=== PATIENT | male | born 1940 | race Two or more races ===

== ENCOUNTER 2020-08-17 16:38 | Inpatient (IN) | payer MEDICARE, OTHER ==
[~2020-08-17] VITALS: Ht 182.9 cm; Wt 82.6 kg
--- NOTE | 2020-08-17 17:00 | NUR ---
cher MCKEON from sn[facility]. per ems report, pt was found in the floor. possible syncopal episode. pt is verbally responsive. 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 roomed, gowned and placed on monitor. awaiting md delaney.
--- NOTE | 2020-08-17 17:22 | NUR ---
syncope - [facility] to ER Accu check - 216 mm/dl
--- NOTE | 2020-08-17 17:30 | NUR ---
dr carr at bedside for eval.
--- NOTE | 2020-08-17 17:45 | NUR ---
unable to start piv. multiple tries. edema to bue noted. ermd aware.
[2020-08-17] MEDS ORDERED: ASCO-352 PO (17:58)
[2020-08-17] MEDS ORDERED: FOLI0.8T2 PO (17:58)
[2020-08-17] MEDS ORDERED: DOCU-141 PO (17:58)
[2020-08-17] MEDS ORDERED: SPIR50TA PO (17:58)
[2020-08-17] MEDS ORDERED: MAGN400O6 PO (17:58)
[2020-08-17] MEDS ORDERED: MULT-447 PO (17:58)
[2020-08-17] MEDS ORDERED: POLY17PO4 PO (17:58)
[2020-08-17] MEDS ORDERED: AMIO200T5 PO (17:58)
[2020-08-17] MEDS ORDERED: METO5TAB7 PO (17:58)
[2020-08-17] MEDS ORDERED: ACET-2605 PO (17:58)
[2020-08-17] MEDS ORDERED: ASPI-1169 PO (17:58)
[2020-08-17] MEDS ORDERED: NA P133E RC (17:58)
[2020-08-17] MEDS ORDERED: LEVO112T2 PO (17:58)
[2020-08-17] MEDS ORDERED: FOLI0.4T2 PO (17:58)
[2020-08-17] MEDS ORDERED: AMIN30LI2 PO (17:58)
[2020-08-17] MEDS ORDERED: APIX2.5T PO (17:58)
[2020-08-17] MEDS ORDERED: GABA-532 PO (17:58)
[2020-08-17] MEDS ORDERED: HYDR28.316 RC (17:58)
[2020-08-17] MEDS ORDERED: FURO-144 PO (17:58)
[2020-08-17] MEDS ORDERED: SENN-261 PO (17:58)
[2020-08-17] MEDS ORDERED: LACT10SO3 PO (17:58)
[2020-08-17] MEDS ORDERED: CALC667C6 PO (17:58)
[2020-08-17] MEDS ORDERED: ATOR40TA PO (17:58)
[2020-08-17] MEDS ORDERED: AMLO-213 PO (17:58)
[2020-08-17] MEDS ORDERED: PANT40TA2 PO (17:58)
[2020-08-17] MEDS ORDERED: VITA1TAB56 PO (17:58)
[2020-08-17] MEDS ORDERED: ZINC57OI4 TP (17:58)
[2020-08-17] MEDS ORDERED: FINA5TAB11 PO (17:58)
[2020-08-17] MEDS ORDERED: CARV25TA2 PO (17:58)
[2020-08-17] MEDS ORDERED: ACET-868 PO (17:58)
[2020-08-17] MEDS ORDERED: SEVE800T8 PO (17:58)
[2020-08-17] MEDS ORDERED: BISA10SU11 RC (17:58)
[2020-08-17] MEDS ORDERED: METO-295 PO (17:58)
--- NOTE | 2020-08-17 19:20 | NUR ---
report given to carol royal for stefan.
[2020-08-17] MEDS ORDERED: MAGNESIUM HYDROXIDE 30 ML UDC PO PRN (19:30)
[2020-08-17] MEDS ORDERED: HYDROCORTISONE CR 30 GM TUBE RC PRN (19:30)
[2020-08-17] MEDS ORDERED: ACETAMINOPHEN 325 MG TABLET PO PRN (19:30)
[2020-08-17] MEDS ORDERED: NA PHOS,M-B/NA PHOS,DI-BA 1 EA ENEMA RC PRN (19:30)
[2020-08-17] MEDS ORDERED: POLYETHYLENE GLYCOL 3350 17 GM POWD.PACK PO PRN (19:30)
[2020-08-17] MEDS ORDERED: ACETAMINOPHEN ES 500 MG TABLET PO PRN (20:00)
--- NOTE | 2020-08-17 20:09 | NUR ---
covid swab sent
--- NOTE | 2020-08-17 21:14 | NUR ---
R UPPER ARM MIDLINE INSERTED BY PICC LINE NURSE (MERCEDES)
--- NOTE | 2020-08-17 21:15 | NUR ---
blood collected from midline, sent to lab. called to run stat
[2020-08-17 21:22] LABS: BASOPHILS # (AUTO) 0.1 /CMM (0.0-0.2); BASOPHILS % (AUTO) 0.8 % (0.0-2.0); HEMATOCRIT 33 % (39-51); HEMOGLOBIN 10.8 g/dL (13.5-17.5); LYMPHOCYTES % (AUTO) 12.5 % (20.0-44.0); MEAN CORPUSCULAR HGB CONC 32 g/dl (31.0-36.0); MEAN CORPUSCULAR VOLUME 98 fL (80-96); MONOCYTES # (AUTO) 0.8 /CMM (0.1-1.30); MONOCYTES % (AUTO) 9.8 % (2.0-12.0); NEUTROPHILS # (AUTO) 6.2 /CMM (1.8-8.9); NEUTROPHILS % (AUTO) 75.9 % (43.0-81.0); PLATELET COUNT (AUTO) 130 /CMM (150-450); RED BLOOD CELL COUNT(AUTO) 3.39 MIL/uL (4.5-6.0); WHITE BLOOD COUNT (AUTO) 8.2 K/uL (4.3-11.0)
[2020-08-17 21:32] LABS: CALCIUM, SERUM 8.5 mg/dL (8.5-10.1); CARBON DIOXIDE 34 mmol/L (21-32); CHLORIDE 101 mmol/L (98-107); CREATININE 3.5 mg/dL (0.6-1.3); GLUCOSE 93 mg/dL (74-106); POTASSIUM 4.4 mmol/L (3.5-5.1); SODIUM SERUM 141 mmol/L (136-145); UREA NITROGEN, BLOOD 30 mg/dL (7-18)
[2020-08-17 21:38] LABS: ALANINE AMINOTRANSFERASE 16 U/L (12-78); ALBUMIN 2.2 g/dL (3.4-5.0); ALKALINE PHOSPHATASE 163 U/L (46-116); ASPARTATE AMINOTRANSFERASE 32 U/L (15-37); BILIRUBIN,DIRECT 0.5 mg/dL (0.0-0.2)
[2020-08-17] MEDS: SENNOSIDES 8.6 MG TABLET PO SCH (22:00)
--- NOTE | 2020-08-18 05:43 | NUR ---
BED ASSIGNMENT 118
[2020-08-18] MEDS: ATORVASTATIN 40 MG TABLET PO SCH ×2 (05:44→21:17)
[2020-08-18] MEDS ORDERED: ATORVASTATIN 40 MG TABLET ONE (05:44)
--- NOTE | 2020-08-18 07:11 | NUR ---
REPORT GIVEN LESLYE RN FOR MICHELLE PT WILL BE TRANSPORTED TO 1ST FLOOR
[2020-08-18 08:00] VITALS: BP 131/81
--- NOTE | 2020-08-18 08:00 | NUR ---
Patient received from ED in good stable condition via gurney. Patient admitted to tele floor, No c/o pain or discomfort. On 02 sat 4 liters via n/c with 02 saturation of 97%+. Patient provided breakfast and full body assessment done with findings listed. Patient on tele box with a FIB hr OF 80'S. Patient teaching done regarding safety and fall precautions. Will continue to monitor. Call light with in reach. Bed is in lowest and locked position.
[2020-08-18] MEDS: PANTOPRAZOLE 40 MG TABLET.DR PO SCH (08:22)
[2020-08-18] MEDS: ASCORBIC ACID 500 MG TABLET PO SCH (08:23)
[2020-08-18] MEDS: DOCUSATE SODIUM 100 MG CAPSULE PO SCH ×2 (08:23→17:16)
[2020-08-18] MEDS: CALCIUM ACETATE 667 MG TABLET PO SCH (08:23)
[2020-08-18] MEDS: METOCLOPRAMIDE HCL 10 MG TABLET PO SCH (08:23)
[2020-08-18] MEDS: GABAPENTIN 100 MG CAPSULE PO SCH ×3 (08:23→17:16)
[2020-08-18] MEDS: SEVELAMER CARBONATE 800 MG TABLET PO SCH ×3 (08:23→17:16)
[2020-08-18] MEDS: ASPIRIN 81 MG TAB.CHEW PO SCH (08:24)
[2020-08-18] MEDS: CARVEDILOL 12.5 MG TABLET PO SCH ×2 (08:24→16:03)
[2020-08-18] MEDS: APIXABAN 2.5 MG TABLET PO SCH ×2 (08:25→17:27)
[2020-08-18] MEDS: PROSOURCE / PROSTAT (PYXIS) 30 ML UDC PO SCH (08:49)
[2020-08-18] MEDS ORDERED: AMLODIPINE BESYLATE 10 MG TABLET PO SCH (09:00)
[2020-08-18] MEDS ORDERED: AMIODARONE HCL 200 MG TABLET PO SCH (09:00)
--- NOTE | 2020-08-18 09:00 | NUR ---
Patient requested to be resuscitated in case of emergency.
[2020-08-18 10:23] LABS: BASOPHILS % (AUTO) 0.3 % (0.0-2.0); EOSINOPHILS % (AUTO) 0.2 % (0.0-6.0); HEMATOCRIT 31 % (39-51); LYMPHOCYTES # (AUTO) 0.8 /CMM (0.8-4.8); LYMPHOCYTES % (AUTO) 9.2 % (20.0-44.0); MEAN CORPUSCULAR HGB CONC 32 g/dl (31.0-36.0); MEAN CORPUSCULAR VOLUME 99 fL (80-96); MONOCYTES # (AUTO) 0.6 /CMM (0.1-1.30); MONOCYTES % (AUTO) 7.6 % (2.0-12.0); NEUTROPHILS # (AUTO) 6.7 /CMM (1.8-8.9); NEUTROPHILS % (AUTO) 82.7 % (43.0-81.0); RED BLOOD CELL COUNT(AUTO) 3.17 MIL/uL (4.5-6.0); WHITE BLOOD COUNT (AUTO) 8.1 K/uL (4.3-11.0)
[2020-08-18 10:50] LABS: CALCIUM, SERUM 8.6 mg/dL (8.5-10.1); CARBON DIOXIDE 32 mmol/L (21-32); CHLORIDE 104 mmol/L (98-107); CREATININE 4.1 mg/dL (0.6-1.3); GLUCOSE 127 mg/dL (74-106); POTASSIUM 4.1 mmol/L (3.5-5.1); SODIUM SERUM 140 mmol/L (136-145); UREA NITROGEN, BLOOD 34 mg/dL (7-18)
[2020-08-18 11:07] LABS: ALANINE AMINOTRANSFERASE 12 U/L (12-78); ALBUMIN 1.8 g/dL (3.4-5.0); ALKALINE PHOSPHATASE 112 U/L (46-116); ASPARTATE AMINOTRANSFERASE 28 U/L (15-37); BILIRUBIN,TOTAL 0.8 mg/dL (0.2-1.0); MAGNESIUM 2.2 mg/dL (1.8-2.4); PHOSPHORUS 4.4 mg/dL (2.5-4.9); TOTAL PROTEIN, SERUM 5.8 g/dL (6.4-8.2)
[2020-08-18 12:00] VITALS: BP 93/67
[2020-08-18] MEDS: LEVOTHYROXINE SODIUM 112 MCG TABLET PO SCH (12:22)
[2020-08-18 13:25] LABS: PLATELET COUNT (AUTO) 80 /CMM (150-450)
--- NOTE | 2020-08-18 15:32 | NUR ---
Spoke to AUTOMOBILE RENTAL AGENT Yosvany Riley regarding patient's Bp being 83/50 and rechecked with bp of 85/58. No c/o dizziness. No c/o blurred vision. Informed md regarding patient's eliquis and platelet count today. Per Md to give eliquis and nno for BP. Patient will be monitored. Call light with in reach.
[2020-08-18 16:00] VITALS: BP 84/61
[2020-08-18] MEDS: FINASTERIDE (5 MG) 5 MG TABLET PO SCH (17:16)
--- NOTE | 2020-08-18 18:46 | NUR ---
television maintenance man closing notes Patient is alert and oriented. No s/s respiratory distress. No c/o sob. Perma cath noted to right upper chest. Patient ate 100% breakfast, 100 % lunch and 50% dinner. Picc line to right upper arm noted to be patent.Tele box reading of afib in 80's. On 02 4 liters with saturation of 98%. Head of the bed kept elevated. Bed is in lowest and locked and position. Call light with in reach.Will endorse to next shift for MICHELLE
--- NOTE | 2020-08-18 19:15 | NUR ---
RN OPENING NOTE RECEIVED PATIENT IN BED RESTING ALERT ORIENTED X2 VERBALLY RESPONSIVE on 2l OXYGEN VIA NASAL CANNULA,O2;98% ON DIALYSIS IV SITE IS ON RIGHT UPPER ARM MIDLINE INTACT PATENT,PERM CATH ON RIGHT UPPER CHEST,DRESSING INTACT PATIENT IS CONTINENT TO BOWEL/BLADDER BED ALARM IS ON,BED IN LOW POSITION AND LOCKED CALL LIGHT WITHIN REACH,SAFETY MEASURE IMPLEMENT CONTINUE TO MONITOR.
[2020-08-18 20:00] VITALS: BP 115/61
[2020-08-18] MEDS: SENNOSIDES 8.6 MG TABLET PO SCH (21:17)
[2020-08-19] VITALS: BP 92/62
[2020-08-19 04:00] VITALS: BP 96/47
[2020-08-19 06:54] LABS: BASOPHILS % (AUTO) 0.5 % (0.0-2.0); EOSINOPHILS % (AUTO) 1.9 % (0.0-6.0); HEMATOCRIT 27 % (39-51); HEMOGLOBIN 8.9 g/dL (13.5-17.5); LYMPHOCYTES # (AUTO) 0.7 /CMM (0.8-4.8); LYMPHOCYTES % (AUTO) 15.6 % (20.0-44.0); MEAN CORPUSCULAR HGB CONC 33 g/dl (31.0-36.0); MEAN CORPUSCULAR VOLUME 97 fL (80-96); MONOCYTES # (AUTO) 0.5 /CMM (0.1-1.30); MONOCYTES % (AUTO) 11.3 % (2.0-12.0); NEUTROPHILS # (AUTO) 3.2 /CMM (1.8-8.9); NEUTROPHILS % (AUTO) 70.7 % (43.0-81.0); PLATELET COUNT (AUTO) 72 /CMM (150-450); RED BLOOD CELL COUNT(AUTO) 2.78 MIL/uL (4.5-6.0); WHITE BLOOD COUNT (AUTO) 4.5 K/uL (4.3-11.0)
[2020-08-19 07:31] LABS: ALANINE AMINOTRANSFERASE 12 U/L (12-78); ALBUMIN 1.6 g/dL (3.4-5.0); ALKALINE PHOSPHATASE 104 U/L (46-116); ASPARTATE AMINOTRANSFERASE 27 U/L (15-37); BILIRUBIN,TOTAL 0.5 mg/dL (0.2-1.0); CALCIUM, SERUM 8.1 mg/dL (8.5-10.1); CARBON DIOXIDE 33 mmol/L (21-32); CHLORIDE 104 mmol/L (98-107); CREATININE 4.3 mg/dL (0.6-1.3); GLUCOSE 79 mg/dL (74-106); MAGNESIUM 2.1 mg/dL (1.8-2.4); POTASSIUM 4.4 mmol/L (3.5-5.1); SODIUM SERUM 139 mmol/L (136-145); TOTAL PROTEIN, SERUM 5.4 g/dL (6.4-8.2); UREA NITROGEN, BLOOD 40 mg/dL (7-18)
--- NOTE | 2020-08-19 07:35 | NUR ---
RN CLOSING NOTE PATIENT REMAINS IN BED RESTING ALERT ORIENTED X2 VERBALLY RESPONSIVE on 2l OXYGEN VIA NASAL CANNULA,O2;98% ON DIALYSIS IV SITE IS ON RIGHT UPPER ARM MIDLINE INTACT PATENT,PERM CATH ON RIGHT UPPER CHEST,DRESSING INTACT,ALL DUE MEDS GIVEN, MD ORDERED KEPT CLEAN AND DRY ALL THE TIME,ALL NEEDS MET,ENDORSE NEXT COMING SHIFT FOR CONTINUATION OF CARE.
--- NOTE | 2020-08-19 07:36 | NUR ---
ms rn received on bed, awake,alert,oriented x4,not in any form of distress, respirations even and unlabored,no sob noted, denies pain at this time,all needs attended.
[2020-08-19 08:00] VITALS: BP 103/62
[2020-08-19] MEDS: AMIODARONE HCL 200 MG TABLET PO SCH (09:00)
[2020-08-19] MEDS: PROSOURCE / PROSTAT (PYXIS) 30 ML UDC PO SCH (09:00)
--- NOTE | 2020-08-19 09:00 | NUR ---
ms royal breakfast served,due meds given,tolerated well.
[2020-08-19] MEDS: DOCUSATE SODIUM 100 MG CAPSULE PO SCH ×2 (09:06→18:08)
[2020-08-19] MEDS: ASCORBIC ACID 500 MG TABLET PO SCH (09:06)
[2020-08-19] MEDS: CALCIUM ACETATE 667 MG TABLET PO SCH (09:06)
[2020-08-19] MEDS: METOCLOPRAMIDE HCL 10 MG TABLET PO SCH (09:06)
[2020-08-19] MEDS: GABAPENTIN 100 MG CAPSULE PO SCH ×3 (09:06→18:07)
[2020-08-19] MEDS: ASPIRIN 81 MG TAB.CHEW PO SCH (09:06)
[2020-08-19] MEDS: APIXABAN 2.5 MG TABLET PO SCH (09:07)
[2020-08-19] MEDS: SEVELAMER CARBONATE 800 MG TABLET PO SCH ×3 (09:09→18:07)
[2020-08-19] MEDS: LEVOTHYROXINE SODIUM 112 MCG TABLET PO SCH (09:09)
[2020-08-19] MEDS: PANTOPRAZOLE 40 MG TABLET.DR PO SCH (09:09)
--- NOTE | 2020-08-19 09:26 | NUR ---
WOUND CARE CONSULT: REVIEWED CHART, NURSING DOCUMENTATION AND PHOTOS WHICH INDICATE MULTIPLE WOUNDS PRESENT ON ADMISSION INCLUDING LOWER EXTREMITIES, SACRUM, SKIN TEARS TO ARMS WITH FRAGILE SKIN AND DISCOLORATIONS. RECOMMEND SURGICAL AND DPM CONSULTS. DR MONAHAN AND DR RAY NOTIFIED OF CONSULT REQUESTS. FIRST STEP LOW AIRLOSS MATTRESS IS ORDERED. RECOMMENDATIONS MADE FOR SKIN PROTECTION. DISCUSSED WITH NURSING STAFF. MD IN AGREEMENT WITH PLAN OF CARE.
[2020-08-19] MEDS ORDERED: Z GUARD REMEDY 2 OZ OINT TP PRN (09:30)
[2020-08-19] MEDS: Z GUARD REMEDY 2 OZ OINT TP SCH (09:42)
[2020-08-19 09:54] LABS: EOSINOPHILS % (MANUAL) 1 % (0-4); LYMPHOCYTES % (MANUAL) 16 % (16-48); MONOCYTES % (MANUAL) 9 % (0-11.0); NEUTROPHILS % (MANUAL) 74 (42-76)
[2020-08-19 09:56] LABS: THYROID STIMULATING HORMONE 15.734 uIU/mL (0.358-3.74)
[2020-08-19 12:00] VITALS: BP 102/69
[2020-08-19 16:00] VITALS: BP 94/55
[2020-08-19] MEDS ORDERED: HEPARIN INFUSION/D5W 500 ML IV PRN (17:00)
--- NOTE | 2020-08-19 17:30 | NUR ---
ms rn patient started on hd, tolerated well.
[2020-08-19] MEDS: FINASTERIDE (5 MG) 5 MG TABLET PO SCH (18:07)
--- NOTE | 2020-08-19 19:00 | NUR ---
ms rn patient on hd, heparin will be started after hd.
--- NOTE | 2020-08-19 19:20 | NUR ---
RECEIVED PT ON BED AWAKE ON O2 4L VIA NC SPO2 96% NO SIGN OF DISTRESS AND PAIN PT IS ONGOING HD, HD NURSE AT BEDSIDE, TELE MONITOR READS CONTROLLED AFIB 80'S , HAVE MANUEL MIDLINE PATENT AND FLUSHED, DROPLET ISOLATION FOR COVID MAINTAINED BED ON LOWEST POSITION AND LOCKED SIDE RAILS UP X2 CALL LIGHT WITHIN REACH WILL CONT TO MONITOR
[2020-08-19 20:00] VITALS: BP 109/73
--- NOTE | 2020-08-19 20:15 | NUR ---
PT COMPLETED HD WITH LATEST V/S 101/62 HR 82 TEMP 98 SPO2 98% RR 20 PT IS AWAKE A/O X4 ABLE TO VERBALIZED NEEDS HD OUTPUT 1600 ML WILL CONT TO MONITOR THE PT
[2020-08-19] MEDS: SENNOSIDES 8.6 MG TABLET PO SCH (22:00)
[2020-08-20] VITALS: BP 114/67
[2020-08-20 04:00] VITALS: BP 106/60
[2020-08-20 04:49] LABS: BASOPHILS % (AUTO) 0.8 % (0.0-2.0); EOSINOPHILS % (AUTO) 2.4 % (0.0-6.0); HEMATOCRIT 26 % (39-51); HEMOGLOBIN 8.7 g/dL (13.5-17.5); LYMPHOCYTES # (AUTO) 0.9 /CMM (0.8-4.8); LYMPHOCYTES % (AUTO) 16.6 % (20.0-44.0); MEAN CORPUSCULAR HGB CONC 33 g/dl (31.0-36.0); MEAN CORPUSCULAR VOLUME 97 fL (80-96); MONOCYTES # (AUTO) 0.6 /CMM (0.1-1.30); MONOCYTES % (AUTO) 10.8 % (2.0-12.0); NEUTROPHILS % (AUTO) 69.4 % (43.0-81.0); PLATELET COUNT (AUTO) 132 /CMM (150-450); RED BLOOD CELL COUNT(AUTO) 2.71 MIL/uL (4.5-6.0); WHITE BLOOD COUNT (AUTO) 5.7 K/uL (4.3-11.0)
[2020-08-20 05:03] LABS: CALCIUM, SERUM 7.8 mg/dL (8.5-10.1); CARBON DIOXIDE 34 mmol/L (21-32); CHLORIDE 100 mmol/L (98-107); CREATININE 3.6 mg/dL (0.6-1.3); GLUCOSE 75 mg/dL (74-106); POTASSIUM 4.3 mmol/L (3.5-5.1); SODIUM SERUM 136 mmol/L (136-145); UREA NITROGEN, BLOOD 32 mg/dL (7-18)
--- NOTE | 2020-08-20 05:30 | NUR ---
REPORTED TO DR MCWILLIAMS ABOUT THE APTT OF 170 WITH ORDER TO HOLD HEPARIN DRIP FOR 2 HOURS AND REPEAT PT/INR APTT, AND RESUME THE DRIP PER PROTOCOL BASE ON THE REPEAT PT/ APTT RESULT NOTED AND CARRIED OUT
--- NOTE | 2020-08-20 06:16 | NUR ---
REPORTED TO DR. MCWILLIAMS ABOUT THE LEG PAIN COMPLAINT OF THE PT WITH ORDER FOR NORCO 5-325 PO PRN Q6H NOTED AND CARRIED OUT
[2020-08-20] MEDS: HYDROCODONE/APAP 5/325MG TABLET PO PRN ×2 (06:29→21:23)
--- NOTE | 2020-08-20 06:40 | NUR ---
PT ON BED AWAKE A/O X3 CAN VERBALIZED NEEDS ON 4L O2 VIA NC SPO2 98% TELE MONITOR READS AFIB CONTROLLED 90'S NO SIGNIFICANT CHANGES ON CONDITION NOTED ALL NEEDS ATTENDED WOUND TREATMENT WAS DONE, BED ON LOWEST POSITION AND LOCKED SIDE RAILS UP X2 CALL LIGHT WITHIN REACH WILL ENDORSED TO AM SHIFT NURSE
[2020-08-20 08:00] VITALS: BP 117/71
--- NOTE | 2020-08-20 08:00 | NUR ---
CONTROLLED ATMOSPHERIC FURNACE BRAZER NOTE PT ON BED AWAKE A/O X3 CAN VERBALIZED NEEDS ON 4L O2 VIA NC SPO2 100 % TELE MONITOR READS AFIB CONTROLLED 85% ALL NEEDS ATTENDED , BED ON LOWEST POSITION AND LOCKED SIDE RAILS UP X2 CALL LIGHT WITHIN REACH, RT UPPER ARM NID LINE IN PLACE AND FLUSHED WELL HEPARIN DRIP SOPPED AT THIS TIME PER REPORT CUSTOMER SOLUTIONS ARCHITECT RN , HAVING BREAKFAST ABLE TO EAT WELL
[2020-08-20] MEDS: ASCORBIC ACID 500 MG TABLET PO SCH (09:00)
[2020-08-20] MEDS: PROSOURCE / PROSTAT (PYXIS) 30 ML UDC PO SCH (09:00)
--- NOTE | 2020-08-20 09:00 | NUR ---
SHEET ROLLER OPERATOR NOTE CALLED TO DR LINDA BACKSHOE PERSON NOTIFIED THAT PTT 39.6, PER HOSPITAL PROTOCOL NEED TO GIVE BOLUS 3400 UNITS AND INCREASE DRIP BY 2 UNITS WICH 150 UNITS\H PER DR LINDA NO BOLUS BUT OK WITH ADJUSTMENT WILL DO PTT IN 6 HOUR
[2020-08-20] MEDS: CALCIUM ACETATE 667 MG TABLET PO SCH (09:03)
[2020-08-20] MEDS: LEVOTHYROXINE SODIUM 112 MCG TABLET PO SCH (09:03)
[2020-08-20] MEDS: GABAPENTIN 100 MG CAPSULE PO SCH ×3 (09:03→16:42)
[2020-08-20] MEDS: DOCUSATE SODIUM 100 MG CAPSULE PO SCH ×2 (09:03→16:42)
[2020-08-20] MEDS: PANTOPRAZOLE 40 MG TABLET.DR PO SCH (09:04)
[2020-08-20] MEDS: METOCLOPRAMIDE HCL 10 MG TABLET PO SCH (09:04)
[2020-08-20] MEDS: ASPIRIN 81 MG TAB.CHEW PO SCH (09:04)
[2020-08-20] MEDS: AMIODARONE HCL 200 MG TABLET PO SCH (09:10)
[2020-08-20] MEDS: Z GUARD REMEDY 2 OZ OINT TP SCH (09:25)
[2020-08-20] MEDS: SEVELAMER CARBONATE 800 MG TABLET PO SCH ×3 (09:25→17:38)
[2020-08-20] MEDS: THERAHONEY GEL 1.5 OZ TUBE TP SCH (09:26)
--- NOTE | 2020-08-20 11:24 | NUR ---
telephone information supervisor note spoke with dr mcarthur notified that earlier ptt was 170 and heparin drip was held for 2 hour ordered now ok to start heparin drip at 1550 units, and also c\o yue [facility] called to dr hamlet lebron to order Doppler study
[2020-08-20] MEDS ORDERED: HEPARIN INFUSION/D5W 500 ML IV PRN ×2 (11:30→18:30)
[2020-08-20 12:00] VITALS: BP 105/58
--- NOTE | 2020-08-20 13:47 | NUR ---
television maintenance worker note pt at bedside pt eval done Addendum: 08/20/20 at 1355 by TABITHA PARKER RN called to central supply to bring kci noa stated that will order
--- NOTE | 2020-08-20 14:30 | NUR ---
MEDICAL STAFF SERVICES MANAGER NOTE ON HD AT THIS TIME
--- NOTE | 2020-08-20 14:30 | NUR ---
telemarketing supervisor note us Dopplex done on lt leg as ordered
--- NOTE | 2020-08-20 14:55 | NUR ---
BUTTONHOLE MARKER NOTE PER RADIOLOGY LT FEMORAL THROMBUS , CALLED TO DR KNOX NOTIFIED THAT PATIENT ALREADY ON HEPARIN DRIP NO NEW ORDER AT THIS TIME ,WILL MONITOR, ON HD FOR NOW
[2020-08-20 16:00] VITALS: BP 93/68
--- NOTE | 2020-08-20 16:37 | NUR ---
ASSOCIATE PROFESSOR OF ARCHAEOLOGY NOTE HD COMPLETED. REMOVE 1.1 L OF FLUIDS BP 124/68 HR101
[2020-08-20] MEDS: FINASTERIDE (5 MG) 5 MG TABLET PO SCH (16:42)
--- NOTE | 2020-08-20 17:55 | NUR ---
SOCIOCULTURAL ANTHROPOLOGY PROFESSOR NOTE CALLED TO LAB ABOUT PTT RESULT NOT READY ,WILL F\U
--- NOTE | 2020-08-20 18:10 | NUR ---
GLOBAL VP CREATIVE + CONTENT MARKETING NOTE PTT 71.6 ,PER HOSPITAL PROTOCOL OK TO DECREASE BY 2 UNITS \KG\H=150 UNITS\HOUR WHICH MADE 1400 UNITS \KG\HOUR , CALLED PHARMACY STATED OK TO CONT THIS RATE ALSO PER DR LINDA OK TO FOLLOW HOSPITAL PROTOCOL AND PER LISETTE CHRISTENSEN OK TO CONT HEPARIN DRIP FOR LT FEMORAL VEIN THROMBOSIS
--- NOTE | 2020-08-20 18:43 | NUR ---
CONSUMER RECRUITER NOTE RESTING COMFORTABLY AT THIS TIME, ABLE TO EAT DINNER SELF , ALL NEEDS ATTENDED , CONT ON HEPARIN DRIP ORDERED, BED IN LOWEST AND LOCKED POSITION, CALLED [facility] NO [facility] AVAILABLE YET AT THIS TIME, BED IN LOWEST AND LOCKED POSITION,ON 4L NC, NO SOB NOTED , WILL CONT TO MONITOR
--- NOTE | 2020-08-20 19:30 | NUR ---
RN OPENING NOTES: RECEIVED PT A/OX3 IN BED RESTING COMFORTABLY. PATIENT IN NO S/SX OF ACUTE DISTRESS AT THIS TIME. NO SOB NOTED. PATIENT'S BREATHING IS EVEN AND UNLABORED. PATIENT IS ON 4 L OF OXYGEN VIA NC; TOLERATING WELL. PATIENT ON TELE MONITORING READING SINUS RHYTHM HR IS @80s AT THE TIME OF RECEIVED.PATIENT ON RENAL SPECIFIC DIET; TOLERATES WELL. NOTED IV SITE ON R UA MIDLINE #18 ; PATENT, INTACT AND FLUSHING WELL; NO S/S OF INFECTION OR INFILTRATION. PT ALSO HAS A R PER CATH; SECURED AND INTACT. SAFETY MEASURES HAVE BEEN PROVIDED AND IMPLEMENTED. PATIENT BED ALARM IS ON. HEAD OF BED ELEVATED. BED IS LOCKED, IN LOWEST POSITION AND SIDE RAILS UP. CALL LIGHT WITHIN REACH OF THE PATIENT. APPLICABLE ISOLATION PRECAUTIONS IN PLACE. WILL CONTINUE TO MONITOR AND REASSESS FOR ANY CHANGES AND WILL CARRY OUT ANY ONGOING AND ACTIVE MD ORDER.
[2020-08-20 20:00] VITALS: BP 122/68
--- NOTE | 2020-08-20 20:30 | NUR ---
RN NOTES SACHINI SILVERIO APPLIED; IMPORTER EXPORTER MADE AWARE.
[2020-08-20] MEDS: SENNOSIDES 8.6 MG TABLET PO SCH (21:15)
--- NOTE | 2020-08-20 23:00 | NUR ---
RN NOTES PATIENT REMAINS IN NO ACUTE RESPIRATORY DISTRESS AT THIS TIME, NO CHANGES TO CONDITION/STATUS. MALTED MILK SUPERVISOR WELL AWARE. WILL CONTINUE TO MONITOR AND REASSESS FOR ANY CHANGES THROUGHOUT THE SHIFT
--- NOTE | 2020-08-21 00:05 | NUR ---
RN NOTES PATIENT REFUSED FOR VITAL SIGNS TO BE TAKEN FOR 0000, RN DISCUSSED RISKS AND BENEFITS; PT STILL REFUSED; HE SAID HE IS GOOD TO HAVE HIS VITALS SIGNS TAKEN IN THE MORNING. RN ACKNOWLEDGED. MOTOR BUILDER ASSEMBLER MADE AWARE. WILL CONTINUE TO MONITOR AND ASSESS THROUGHOUT THE SHIFT.
--- NOTE | 2020-08-21 01:55 | NUR ---
RN NOTES RECEIVED CALL FROM LAB, SPOKE WITH ROSELYN, CRITICAL LAB RECEIVED FOR APTT 163.9. RN ACKNOWLEDGED. PRODUCT DEVELOPMENT SCIENTIST MADE AWARE. WILL INFORM SILVIA GRAHAM AND WILL SECURE ANY ORDERS NEEDED.
--- NOTE | 2020-08-21 01:56 | NUR ---
RN NOTES COMMUNICATED WITH SILVIA GRAHAM AND ADVISED ABOUT CRITICAL LAB RESULT FOR APTT 163.9.AWAITING FOR RESPONSE, WILL CARRY OUT ORDER ONCE RECEIVED. ERIKA KAUR MADE AWARE. Addendum: 08/21/20 at 0217 by DORIAN DOWNEY RN @0215 RECEIVED ORDER FROM SILVIA GRAHAM TO HOLD INFUSION FOR 2HRS AND REPEAT APTT THEN FOLLOW PROTOCOL. ERIKA KAUR MADE AWARE.
--- NOTE | 2020-08-21 02:15 | NUR ---
RN NOTES HEPARIN DRIP PUT ON HOLD PER ORDERED BY SILVIA GRAHAM. REPEAT APTT WILL BE DONE @0415. AND WILL FOLLOW PROTOCOL PER ORDERED. HEALTH EDUCATOR MADE AWARE.
[2020-08-21 04:00] VITALS: BP 138/70
--- NOTE | 2020-08-21 04:10 | NUR ---
RN NOTES AT 0405 APPT RESULT CAME OUT 50.5, NO CHANGES TO HEPARIN INFUSION DOSE RATE PER PROTOCOL; CURRENT DOSE RATE IS @ 1400UNITS/HR; 28MLS/HR. SEMICONDUCTOR EQUIPMENT TECHNICIAN MADE AWARE. WILL CONTINUE TO MONITOR AND ASSESS THROUGHOUT THE SHIFT.
[2020-08-21 04:19] LABS: BASOPHILS # (AUTO) 0.1 /CMM (0.0-0.2); BASOPHILS % (AUTO) 0.9 % (0.0-2.0); HEMATOCRIT 26 % (39-51); HEMOGLOBIN 8.6 g/dL (13.5-17.5); LYMPHOCYTES # (AUTO) 1.1 /CMM (0.8-4.8); LYMPHOCYTES % (AUTO) 17.7 % (20.0-44.0); MEAN CORPUSCULAR HGB CONC 33 g/dl (31.0-36.0); MEAN CORPUSCULAR VOLUME 97 fL (80-96); MONOCYTES # (AUTO) 0.8 /CMM (0.1-1.30); MONOCYTES % (AUTO) 13.6 % (2.0-12.0); NEUTROPHILS % (AUTO) 65.8 % (43.0-81.0); PLATELET COUNT (AUTO) 80 /CMM (150-450)
[2020-08-21 04:22] LABS: CALCIUM, SERUM 7.6 mg/dL (8.5-10.1); CARBON DIOXIDE 34 mmol/L (21-32); CHLORIDE 99 mmol/L (98-107); CREATININE 3.4 mg/dL (0.6-1.3); GLUCOSE 83 mg/dL (74-106); POTASSIUM 4.2 mmol/L (3.5-5.1); SODIUM SERUM 134 mmol/L (136-145); UREA NITROGEN, BLOOD 29 mg/dL (7-18)
--- NOTE | 2020-08-21 06:51 | NUR ---
RN CLOSING NOTE: PATIENT REMAINS IN ROOM IN NO SIGNS OF RESPIRATORY DISTRESS, PATIENT STILL ON 4L VIA NC;TOLERATING WELL SATURATING @ >95% SP02. SAFETY MEASURES IMPLEMENTED, BED IN LOWEST POSITION, LOCKED, SIDE RAILS UP, CALL LIGHT WITHIN REACH. ALL NEEDS AND ORDERS ADDRESSED DURING THE SHIFT. IV ACCESS MAINTAINED INTACT, SECURED AND FLUSHING WELL. ALL DUE MEDS GIVEN ORDERED & SCHEDULED ; PATIENT TOLERATED WELL. PATIENT KEPT CLEAN AND COMFORTABLE WITHIN THE SHIFT. PATIENT ENDORSED TO INCOMING SHIFT RN WITH STABLE VITAL SIGN AND FOR CONTINUITY OF CARE.
[2020-08-21] MEDS: LEVOTHYROXINE SODIUM 112 MCG TABLET PO SCH (07:30)
--- NOTE | 2020-08-21 07:30 | NUR ---
FIELD CROP GROWER OPENING NOTE PT LAYING IN BED COMFORTABLY, A/Ox4, ON NC 4 LPM, NO SIGNS OF RESP DISTRESS OR SOB, BREATING EVEN AND UNLABORED, PT DENIES PAIN. PT IS BB AND HAS BILAT UPPER AND LOWER EXTREMITY EDEMA AND BRUISING. WEEPING SKIN COVERED IN ABD DRSG AND KERLIX. SACRAL DTI COVERED IN MEPILEX. PT MANUEL MIDLINE #18 INFUSING HEPARIN DRIP @ 1400 UNITS/HR; 28 MLS/HR PER PROTOCOL. ALL PT SAFETY MEASURES IN PLACE. WILL CONT TO MONITOR
[2020-08-21 08:00] VITALS: BP 127/78
[2020-08-21 08:07] LABS: IMMUNOGLOBULIN A, SERUM 440 mg/dL (61-437); IMMUNOGLOBULIN G, SERUM 1967 mg/dL (603-1613); IMMUNOGLOBULIN M, SERUM 99 mg/dL (15-143)
[2020-08-21] MEDS: ASPIRIN 81 MG TAB.CHEW PO SCH (08:45)
[2020-08-21] MEDS: Z GUARD REMEDY 2 OZ OINT TP SCH (08:45)
[2020-08-21] MEDS: PANTOPRAZOLE 40 MG TABLET.DR PO SCH (08:46)
[2020-08-21] MEDS: ASCORBIC ACID 500 MG TABLET PO SCH (08:46)
[2020-08-21] MEDS: GABAPENTIN 100 MG CAPSULE PO SCH ×3 (08:46→16:44)
[2020-08-21] MEDS: DOCUSATE SODIUM 100 MG CAPSULE PO SCH ×3 (08:46→16:49)
[2020-08-21] MEDS: METOCLOPRAMIDE HCL 10 MG TABLET PO SCH (08:47)
[2020-08-21] MEDS: SEVELAMER CARBONATE 800 MG TABLET PO SCH ×3 (08:47→18:00)
[2020-08-21] MEDS: AMIODARONE HCL 200 MG TABLET PO SCH (08:48)
[2020-08-21] MEDS: THERAHONEY GEL 1.5 OZ TUBE TP SCH (09:10)
[2020-08-21] MEDS: PROSOURCE / PROSTAT (PYXIS) 30 ML UDC PO SCH (09:10)
[2020-08-21] MEDS: CALCIUM ACETATE 667 MG TABLET PO SCH (09:10)
--- NOTE | 2020-08-21 10:00 | NUR ---
tele telephone answerer: notes received pt in bed awake, a/ox3 with hob elevated. remains on o2 at 4l/min via n/c. no distress noted. tele sr=70's. no c/o pain at this time. will continue to monitor.
[2020-08-21 12:00] VITALS: BP 115/72
--- NOTE | 2020-08-21 12:11 | NUR ---
[place] PER DR. ALONSO. STOP HEPARIN DRIP
--- NOTE | 2020-08-21 12:25 | NUR ---
tele barkeeper: notes heparin drip stopped and discontinued per cn. pt made aware. dr. cuevas to call pharmacy and pt to start on eliquis. will continue to monitor.
[2020-08-21 12:55] LABS: *SPE A/G RATIO 0.6 (0.7-1.7); *SPE ALPHA-1-GLOBULIN 0.3 g/dL (0.0-0.4); *SPE ALPHA-2-GLOBULIN 0.4 g/dL (0.4-1.0); *SPE BETA GLOBULIN 1.1 g/dL (0.7-1.3); *SPE GLOBULIN, TOTAL 3.5 g/dL (2.2-3.9); *SPE M-SPIKE Not Observed g/dL (Not Observed); *SPEGAMMA GLOBULIN 1.6 g/dL (0.4-1.8)
[2020-08-21] MEDS ORDERED: APIXABAN 5 MG TABLET PO SCH (13:00)
--- NOTE | 2020-08-21 13:28 | NUR ---
tele field administrator: notes lab called for abnormal ptt ptzstr=408.6. heparin drip has been discontinued, pt is on eliquis med bid. cn made aware of result. dr. cuevas notified and aware of result with no new order.
--- NOTE | 2020-08-21 14:30 | NUR ---
tele tack welder: notes wound care done as ordered and photos taken and placed in chart.
--- NOTE | 2020-08-21 15:00 | NUR ---
tele emergency medicine: md visit seen and examined by dr. cuevas with order to discharge back to [facility]. order acknowledged. pt aware. freddy (brenda) to make arrangement.
--- NOTE | 2020-08-21 15:40 | NUR ---
tele security system technician: notes called [facility], spoke to moriah (rn) and report given for continuity of care. pt has no family per pt. pt aware and verbal discharge instructions provided and verbalized understanding.
[2020-08-21 16:00] VITALS: BP 120/73
--- NOTE | 2020-08-21 16:20 | NUR ---
tele mine utility operator: notes ambulance called and informed me that they are running late and will be here at 1800. [facility] notified, spoke to moriah (genny) and made aware.
[2020-08-21] MEDS: HYDROCODONE/APAP 5/325MG TABLET PO PRN (16:44)
[2020-08-21] MEDS: FINASTERIDE (5 MG) 5 MG TABLET PO SCH ×2 (16:44→16:49)
--- NOTE | 2020-08-21 18:20 | NUR ---
tele inorganic chemistry professor: notes tele removed, still awaiting for ambulance to pickle sorter the pt.
--- NOTE | 2020-08-21 18:30 | NUR ---
tele cyber threat analyst: notes f/u made by santos (brenda) and informed me that the ambulance got stuck from another hospital and will be here in 30 minutes.
--- NOTE | 2020-08-21 19:20 | NUR ---
tele underwear trimmer: notes still awaiting for ambulance to molded goods spot picker the pt. report given to jacinta (genny) for continuity of care.
[2020-08-21 20:00] VITALS: BP 118/75
--- NOTE | 2020-08-21 20:00 | NUR ---
INGREDIENT MIXER NOTE AM WEST HERE TO COMMUNITY RESOURCE OFFICER PATIENT OT TAKE BACK TO [facility]. PER REPORT FROM [facility]CE REPORT CALLED TO BRANDIE AT [facility] ALREADY. REPORT GIVEN TO EMT ANA OF UNIT 21. PT IN NO APPARENT DISTRESS ON 4LNC SATURATION AT 100%. VS WNL. PT ASSISTED TO KIRSTIN . MIDLINE REMOVED FROM LEFT UPPER ARM CATHETER INTACT. NO S/S OF COMPILICATIONS. TELEMETRY REMOVED EARLIER. DIRECTOR ONLINE MARKETING GIVEN DISCHARGE PAPERWORK.
[2020-08-24 08:06] LABS: *ANA ANTI-CENTROMERE B AB <0.2 AI (0.0-0.9); *ANA ANTI-DNA(DS) AB, QN 1 IU/mL (0-9); *ANA ANTI-JO-1 <0.2 AI (0.0-0.9); *ANA ANTICHROMATIN ANTIBODY <0.2 AI (0.0-0.9); *ANA RNP ANTIBODIES <0.2 AI (0.0-0.9); *ANA SJOGREN'S ANTI-SS-A <0.2 AI (0.0-0.9); *ANA SJOGREN'S ANTI-SS-B <0.2 AI (0.0-0.9); *ANAANTI-SCLERODERMA-70 AB <0.2 AI (0.0-0.9); *ANASMITH AB <0.2 AI (0.0-0.9)
== END 2020-08-21 20:23 | DRG 640 ==
LOC: ER 16:41 → TRANSITION 19:23 → TELE1 08-18 05:47
PROVIDERS: ADMIT Internal Medicine; ATTEND Nurse Practitioner Acute Care
PROC: 05H933Z Insertion of Infusion Device into Right Brachial Vein, Percutaneous Approach (ICD-10-PCS; principal; 2020-08-17)
PROC: 5A1D70Z Performance of Urinary Filtration, Intermittent, Less than 6 Hours Per Day (ICD-10-PCS; 2020-08-19)
DX: E86.0 Dehydration (principal); J96.01 Acute respiratory failure with hypoxia; L89.613 Pressure ulcer of right heel, stage 3; N18.6 End stage renal disease; G93.41 Metabolic encephalopathy; I50.32 Chronic diastolic (congestive) heart failure; I13.2 Hypertensive heart and chronic kidney disease with heart failure and with stage 5 chronic kidney disease, or end stage renal disease; E44.0 Moderate protein-calorie malnutrition; D68.59 Other primary thrombophilia; J90 Pleural effusion, not elsewhere classified; I82.412 Acute embolism and thrombosis of left femoral vein; I48.20 Chronic atrial fibrillation, unspecified; F03.90 Unspecified dementia, unspecified severity, without behavioral disturbance, psychotic disturbance, mood disturbance, and anxiety; Z99.2 Dependence on renal dialysis; Z74.09 Other reduced mobility; D63.1 Anemia in chronic kidney disease; D69.6 Thrombocytopenia, unspecified; E78.5 Hyperlipidemia, unspecified; Z20.822 Contact with and (suspected) exposure to COVID-19; Z74.01 Bed confinement status; Z79.82 Long term (current) use of aspirin; Z79.899 Other long term (current) drug therapy; G62.9 Polyneuropathy, unspecified; N40.0 Benign prostatic hyperplasia without lower urinary tract symptoms; Z79.01 Long term (current) use of anticoagulants; I70.0 Atherosclerosis of aorta; N25.0 Renal osteodystrophy; M62.562 Muscle wasting and atrophy, not elsewhere classified, left lower leg; M62.561 Muscle wasting and atrophy, not elsewhere classified, right lower leg
CPT/HCPCS: 36415; 70450-TC; 71045-TC; 72125-TC; 80048-TC; 80053-TC; 80061-TC; 80076-TC; 82728-TC; 82784; 82962-TC; 83540-TC; 83735-TC; 84100-TC; 84155; 84165; 84439-TC; 84443-TC; 84484-TC; 85025-TC; 85610-TC; 85730-TC; 86225; 86235; 86334; 86431-TC; 87081-TC; 90935-TC; 93307-TC; 93971-TC; 97110-TC; 97112-TC; 97530-TC; A6253; C1751; G0378; J1644; J8597; U0003

== ENCOUNTER 2020-09-03 13:21 | Inpatient (IN) | payer MEDICARE, OTHER ==
[~2020-09-03] VITALS: Ht 180.3 cm; Wt 101.6 kg
[~2020-09-03 13:21] MED LIST: ACET-2605 PO; ACET-868 PO; AMIN30LI2 PO; AMIO200T5 PO; AMLO-213 PO; APIX2.5T PO; ASCO-352 PO; ASPI-1169 PO; ATOR40TA PO; BISA10SU11 RC; CALC667C6 PO; CARV25TA2 PO; DOCU-141 PO; FINA5TAB11 PO; FOLI0.4T2 PO; FOLI0.8T2 PO; FURO-144 PO; GABA-532 PO; HYDR28.316 RC; LACT10SO3 PO; LEVO112T2 PO; MAGN400O6 PO; METO-295 PO; METO5TAB7 PO; MULT-447 PO; NA P133E RC; PANT40TA2 PO; POLY17PO4 PO; SENN-261 PO; SEVE800T8 PO; SPIR50TA PO; VITA1TAB56 PO; ZINC57OI4 TP
--- NOTE | 2020-09-03 13:30 | NUR ---
JERZY FROM [facility] TO ER BED #3 FOR WEAKNESS AND HYPOTENSION. PATIENT IS ALERT AND ORIENTED X2. DENIES PAIN. RESPIRATION REGULAR AND UNLABORED. THE PATIENT HAS RIGHT UPPER CHEST HD CATH WITH DRESSING INTACT. PATIENT IS ATTACHED ON A MONITOR. WILL CONTINUE TO MONITOR.
--- NOTE | 2020-09-03 13:40 | NUR ---
left wrist g 20 iv line started
[2020-09-03] MEDS ORDERED: IV NS 0.9% 1,000 ML BAG IV ONE ×3 (14:00→14:30)
[2020-09-03 14:12] LABS: CALCIUM, SERUM 7.6 mg/dL (8.5-10.1); CARBON DIOXIDE 30 mmol/L (21-32); CHLORIDE 104 mmol/L (98-107); CREATININE 3.8 mg/dL (0.6-1.3); GLUCOSE 103 mg/dL (74-106); POTASSIUM 4.1 mmol/L (3.5-5.1); SODIUM SERUM 140 mmol/L (136-145); UREA NITROGEN, BLOOD 34 mg/dL (7-18)
[2020-09-03 14:18] LABS: ALANINE AMINOTRANSFERASE 17 U/L (12-78); ALBUMIN 1.9 g/dL (3.4-5.0); ALKALINE PHOSPHATASE 140 U/L (46-116); ASPARTATE AMINOTRANSFERASE 29 U/L (15-37); BILIRUBIN,DIRECT 0.3 mg/dL (0.0-0.2); BILIRUBIN,TOTAL 0.5 mg/dL (0.2-1.0); TOTAL PROTEIN, SERUM 6.3 g/dL (6.4-8.2)
[2020-09-03 14:21] LABS: BASOPHILS % (AUTO) 0.7 % (0.0-2.0); EOSINOPHILS % (AUTO) 2.5 % (0.0-6.0); HEMATOCRIT 27 % (39-51); HEMOGLOBIN 8.5 g/dL (13.5-17.5); LYMPHOCYTES # (AUTO) 0.7 /CMM (0.8-4.8); LYMPHOCYTES % (AUTO) 12.1 % (20.0-44.0); MEAN CORPUSCULAR HGB CONC 32 g/dl (31.0-36.0); MEAN CORPUSCULAR VOLUME 102 fL (80-96); MONOCYTES # (AUTO) 0.7 /CMM (0.1-1.30); MONOCYTES % (AUTO) 10.9 % (2.0-12.0); NEUTROPHILS # (AUTO) 4.6 /CMM (1.8-8.9); NEUTROPHILS % (AUTO) 73.8 % (43.0-81.0); PLATELET COUNT (AUTO) 82 /CMM (150-450); WHITE BLOOD COUNT (AUTO) 6.2 K/uL (4.3-11.0)
--- NOTE | 2020-09-03 14:29 | NUR ---
PANEL ON-CALL PAGED
--- NOTE | 2020-09-03 15:09 | NUR ---
PATENT RESING IN BED. VSS. MONITOR ON.
--- NOTE | 2020-09-03 15:23 | NUR ---
COVID SWAB DONE AND DROPPED IT OFF IN LAB.
[2020-09-03] MEDS ORDERED: MAGNESIUM HYDROXIDE 30 ML UDC PO PRN (15:30)
[2020-09-03] MEDS ORDERED: IV NS 0.9% 1,000 ML IV ONE (15:30)
[2020-09-03] MEDS ORDERED: Z GUARD REMEDY 2 OZ OINT TP PRN (15:30)
[2020-09-03] MEDS ORDERED: MAG HYDROX/AL HYDROX/SIMETH 30 ML UDC PO PRN (15:30)
[2020-09-03] MEDS ORDERED: ZOLPIDEM TARTRATE 5 MG TABLET PO PRN (15:30)
[2020-09-03] MEDS ORDERED: ONDANSETRON HCL/PF 4 MG/2 ML VIAL IVP PRN (15:30)
[2020-09-03] MEDS ORDERED: ACETAMINOPHEN 325 MG TABLET PO PRN (15:30)
[2020-09-03 16:31] LABS: EOSINOPHILS % (MANUAL) 3 % (0-4); LYMPHOCYTES % (MANUAL) 10 % (16-48); MONOCYTES % (MANUAL) 3 % (0-11.0); NEUTROPHILS % (MANUAL) 84 (42-76)
--- NOTE | 2020-09-03 16:56 | NUR ---
The patient is transfered via gurney to room 117-1. Patient left the ER in stable conditon.
[2020-09-03] MEDS ORDERED: VANCOMYCIN 1 GM in IV D5W 250 ML IV ONE (18:00)
[2020-09-03 18:40] VITALS: BP 107/68
--- NOTE | 2020-09-03 19:37 | NUR ---
PATIENT RECEIVED FROM ER AT 1650. REPORTED RECEIVED BY RN. PATIENT HAS MULTIPLE WOUNDS NOTED AND IS ON OXYGEN THERAPY VIA NC AT 3 LPM. LEFT WRIST SL INTACT AND FLUSHING WELL. PATIENT TOLERATING OXYGEN THERAPY WELL WITH NO COMPLAINTS OF SOB. SAFETY PRECAUTIONS IMPLEMENTED, BED LOCKED IN LOWEST POSITION, SIDE RAILS UP X2, CALL LIGHT WITHIN REACH. WILL ENDORSE CARE TO UPCOMING SHIFT.
[2020-09-03 20:00] VITALS: BP 102/67
--- NOTE | 2020-09-03 20:00 | NUR ---
telephone maintainer notes PATIENT RECEIVED IN BED AWAKE ALERT X3 ON OXYGEN THERAPY VIA NC AT 3 LPM. LEFT WRIST INTACT AND PATENT .ON IVF OF NS AT 75CC/HR INFUSING WELL . PATIENT TOLERATING OXYGEN THERAPY WELL WITH NO COMPLAINTS OF SOB.NO DISTRESS NOTED .ON TELE AFIB ON THE MONITOR.SAFETY PRECAUTIONS IMPLEMENTED, BED LOCKED IN LOWEST POSITION, SIDE RAILS UP X2, CALL LIGHT WITHIN REACH. V/S STABLE AFEBRILE ,WILL CONTINUE TO MONITOR PTS.
[2020-09-03] MEDS: PIPERACILLIN /TAZOBACTAM 2.25 G in IV D5W 50 ML IV SCH (21:50)
[2020-09-04] VITALS: BP 114/72
--- NOTE | 2020-09-04 | NUR ---
BLACKSMITH FARM NOTES PTS C/ O COLDNESS WARM BLANKET APPLIED .TEMP CHECK 95.5 MADE AWARE LUISA MUNGUIA AND CARRIED OUT ,WILL CONTINUE TO MONITOR PTS.
[2020-09-04 04:00] VITALS: BP 100/53
[2020-09-04] MEDS: PIPERACILLIN /TAZOBACTAM 2.25 G in IV D5W 50 ML IV SCH ×3 (04:25→21:08)
--- NOTE | 2020-09-04 05:16 | NUR ---
telesales specialist notes latest temp is 97.1, will continue to monitor pts.
[2020-09-04 06:43] LABS: BASOPHILS % (AUTO) 0.6 % (0.0-2.0); EOSINOPHILS % (AUTO) 2.8 % (0.0-6.0); HEMATOCRIT 26 % (39-51); HEMOGLOBIN 8.3 g/dL (13.5-17.5); LYMPHOCYTES # (AUTO) 0.3 /CMM (0.8-4.8); LYMPHOCYTES % (AUTO) 3.9 % (20.0-44.0); MEAN CORPUSCULAR HGB CONC 32 g/dl (31.0-36.0); MEAN CORPUSCULAR VOLUME 102 fL (80-96); MONOCYTES # (AUTO) 0.4 /CMM (0.1-1.30); NEUTROPHILS # (AUTO) 5.8 /CMM (1.8-8.9); NEUTROPHILS % (AUTO) 86.7 % (43.0-81.0); PLATELET COUNT (AUTO) 75 /CMM (150-450); RED BLOOD CELL COUNT(AUTO) 2.55 MIL/uL (4.5-6.0); WHITE BLOOD COUNT (AUTO) 6.7 K/uL (4.3-11.0)
[2020-09-04 07:00] LABS: CALCIUM, SERUM 7.7 mg/dL (8.5-10.1); CARBON DIOXIDE 28 mmol/L (21-32); CHLORIDE 104 mmol/L (98-107); CREATININE 4.1 mg/dL (0.6-1.3); GLUCOSE 104 mg/dL (74-106); MAGNESIUM 2.2 mg/dL (1.8-2.4); PHOSPHORUS 4.2 mg/dL (2.5-4.9); POTASSIUM 4.4 mmol/L (3.5-5.1); SODIUM SERUM 141 mmol/L (136-145); UREA NITROGEN, BLOOD 36 mg/dL (7-18)
[2020-09-04 07:02] LABS: HDL CHOLESTEROL 30 mg/dL (40-60); LDL 10 mg/dL (0-99); TRIGLYCERIDES 24 mg/dL (30-150)
[2020-09-04 07:13] LABS: CHOLESTEROL 42 mg/dL (<200)
--- NOTE | 2020-09-04 07:39 | NUR ---
BODY AND FENDER WORKER NOTES PTS REMAIN IN BED STABLE V/S , NO SOB NO DISTRESS NOTED ,ENDORSE TO RN DAY SHIFT FOR CONTINUITY OF CARE.
[2020-09-04 08:00] VITALS: BP 92/60
--- NOTE | 2020-09-04 08:00 | NUR ---
RN OPENING NOTE PT IS RESTING IN BED AWAKE. ABLE TO MAKE NEEDS KNOWN TO NURSES. NO COMPLAINT OF PAIN. CURRENTLY ON 3L N/C. 100% O2 SAT. NO RESPIRATORY DISTRESS PRESENT. CONTROLLED AFIB ON EXTERNAL MONITOR. HR IN MID 70'S. CURRENTLY ON BEDREST. MULTIPLE BRUISES PRESENT. HL PRESENT, [address] SIDE RAILS RAISED. BED LOWERED. CALL LIGHT WITHIN REACH. WILL CONTINUE TO MONITOR.
--- NOTE | 2020-09-04 08:11 | NUR ---
WOUND CARE CONSULT: REVIEWED CHART, NURSING DOCUMENTATION AND PHOTOS WHICH INDICATE MULTIPLE WOUNDS, PRESENT ON ADMISSION. RECOMMEND SURGICAL AND DPM CONSULTS. DR MONAHAN AND DR RAY NOTIFIED OF CONSULT REQUESTS. RECOMMENDATIONS MADE FOR SKIN PROTECTION. DISCUSSED WITH NURSING STAFF. MD IN AGREEMENT WITH PLAN OF CARE.
[2020-09-04] MEDS ORDERED: VANCOMYCIN 500 MG in IV D5W 100 ML IV SCH (09:00)
[2020-09-04] MEDS: PANTOPRAZOLE 40 MG TABLET.DR PO SCH (09:08)
--- NOTE | 2020-09-04 11:23 | NUR ---
RN NOTE PT 0800 BP OF 92/60, HR OF 73. PT 1200 BP OF 85/48. HR 74. PT LETHARGY NOTED. NO RESPIRATORY DISTRESS. MD NOTIFIED. WILL CONTINUE TO MONITOR.
[2020-09-04] MEDS ORDERED: APIXABAN 5 MG TABLET PO SCH (11:30)
[2020-09-04 12:00] VITALS: BP 85/48
[2020-09-04] MEDS ORDERED: IV NS 0.9% 500 ML IV ONE ×2 (12:30→18:30)
[2020-09-04] MEDS ORDERED: VANCOMYCIN 1 GM in IV D5W 250ml IV ONE ×2 (14:00→21:00)
[2020-09-04] MEDS ORDERED: VANCOMYCIN 1 GM in IV D5W 250ml IV SCH (14:00)
--- NOTE | 2020-09-04 14:30 | NUR ---
RN NOTE 500 ML BOLUS OF NS ORDERED BY MD. REASSESSED BP OF 100/65. LETHARGY IS NO LONGER PRESENT. PT IS ALERT AND PRESENT. A/O X2. WILL CONTINUE TO MONITOR.
[2020-09-04] MEDS: THERAHONEY GEL 1.5 OZ TUBE TP SCH (15:08)
[2020-09-04 16:00] VITALS: BP 75/48
[2020-09-04] MEDS ORDERED: ALBUMIN 25% 25 GM in PREMIX 1 EA IV PRN (18:30)
--- NOTE | 2020-09-04 19:00 | NUR ---
RN NOTE RECEIVED PATIENT IN BED, AO X 2-3, IN NO S/SX OF ACUTE DISTRESS AT THIS TIME. ON GOING HEMODIALYSIS VIA HD CATH AT R CHESTWALL, HD RN AT BEDSIDE, BP 115/80. PATIENT'S BREATHING IS EVEN AND UNLABORED. PATIENT IS ON 3 L OF OXYGEN VIA NC, TOLERATING WELL, SATURATION AT 96%. PATIENT ON TELE MONITOR READING AFIB CONTROLLED, HR IS 84. NOTED IV SITE AT L HAND, PATENT AND FLUSHING WELL, HD CATH AT R CHEST WALL INTACT, NO S/S OF INFECTION. BARROS CATHETER CONNECTED TO URINE BAG IN PLACE, DRAINING TO A CLEAR, YELLOW OUTPUT. SAFETY MEASURES IMPLEMENTED. PATIENT BED ALARM IS ON. HEAD OF BED ELEVATED. BED IS LOCKED, IN LOWEST POSITION AND SIDE RAILS UP. CALL LIGHT WITHIN REACH OF THE PATIENT. WILL CONTINUE TO MONITOR AND REASSESS FOR ANY CHANGES.
--- NOTE | 2020-09-04 19:40 | NUR ---
RN CLOSING NOTE PT IS AWAKE IN BED. A/O X2 AND GREENLANDIC SPEAKING. ABLE TO MAKE NEEDS KNOWN TO NURSES. NO COMPLAINT OF PAIN. CURRENTLY ON 3L O2 VIA NC. NO RESPIRATORY DISTRESS PRESENT. O2 SAT IN MID 90'S. CONTROLLED A FIB RECORDED VIA EXTERNAL MONITOR. MULTIPLE SKIN BREAKS AND BRUISES PRESENT. HL PRESNET R ARM. SAFETY MEASURES IN PLACE. SIDE RAILS RAISED. BED LOWERED. CALL LIGHT WITHIN REACH. ROUTINE MEDS GIVEN. REPORT GIVEN TO NIGHT NURSE.
[2020-09-04 20:00] VITALS: BP 122/68
[2020-09-04] MEDS: HYDROCODONE/APAP 5/325MG TABLET PO PRN (23:19)
[2020-09-05] VITALS: BP 93/60
[2020-09-05] MEDS: PIPERACILLIN /TAZOBACTAM 2.25 G in IV D5W 50 ML IV SCH ×3 (03:28→19:54)
[2020-09-05 04:00] VITALS: BP 94/53
[2020-09-05] MEDS ORDERED: VANCOMYCIN POST DIALYSIS 500MG IV PRN ×2 (06:00)
[2020-09-05 06:27] LABS: BASOPHILS % (AUTO) 0.6 % (0.0-2.0); EOSINOPHILS % (AUTO) 3.8 % (0.0-6.0); HEMOGLOBIN 7.8 g/dL (13.5-17.5); LYMPHOCYTES # (AUTO) 0.7 /CMM (0.8-4.8); LYMPHOCYTES % (AUTO) 16.5 % (20.0-44.0); MEAN CORPUSCULAR HGB CONC 32 g/dl (31.0-36.0); MEAN CORPUSCULAR VOLUME 102 fL (80-96); MONOCYTES # (AUTO) 0.6 /CMM (0.1-1.30); MONOCYTES % (AUTO) 12.6 % (2.0-12.0); NEUTROPHILS % (AUTO) 66.5 % (43.0-81.0); PLATELET COUNT (AUTO) 55 /CMM (150-450); WHITE BLOOD COUNT (AUTO) 4.5 K/uL (4.3-11.0)
[2020-09-05 06:48] LABS: HEMATOCRIT 24 % (39-51)
[2020-09-05 06:56] LABS: CALCIUM, SERUM 7.6 mg/dL (8.5-10.1); CARBON DIOXIDE 29 mmol/L (21-32); CHLORIDE 102 mmol/L (98-107); CREATININE 3.5 mg/dL (0.6-1.3); GLUCOSE 77 mg/dL (74-106); MAGNESIUM 2.1 mg/dL (1.8-2.4); PHOSPHORUS 3.8 mg/dL (2.5-4.9); POTASSIUM 4.2 mmol/L (3.5-5.1); SODIUM SERUM 138 mmol/L (136-145); UREA NITROGEN, BLOOD 31 mg/dL (7-18)
[2020-09-05 08:00] VITALS: BP 99/63
[2020-09-05] MEDS: PANTOPRAZOLE 40 MG TABLET.DR PO SCH (08:05)
[2020-09-05] MEDS: THERAHONEY GEL 1.5 OZ TUBE TP SCH ×2 (10:04)
[2020-09-05] MEDS: DAKINS QUARTER STRENGTH (0.125%) 480 ML BOTTLE TOP SCH (10:04)
--- NOTE | 2020-09-05 10:30 | NUR ---
DO POPPY NOTIFIED OF COMPLETED US ABD RESULT
--- NOTE | 2020-09-05 11:00 | NUR ---
MD RAY NOTIFIED OF PT COVID TEST RESULT POSITIVE , DUE TO POSITIVE STATUS, VENOUS DUPLEX SCAN CANCELLED, ARTERIAL DOPPLER TO BE HELD FOR NOW, SERIAL DEBRIDEMENT ALSO TO BE POSTPONED.
[2020-09-05] MEDS: DEXAMETHASONE SOD PHOSPHATE 10 MG/ML VIAL IV SCH (11:31)
[2020-09-05] MEDS ORDERED: APIXABAN 5 MG TABLET PO SCH ×3 (11:37→17:00)
[2020-09-05 12:00] VITALS: BP 100/60
[2020-09-05] MEDS ORDERED: NA PHOS,M-B/NA PHOS,DI-BA 1 EA ENEMA RC PRN (12:00)
[2020-09-05] MEDS ORDERED: HYDROCORTISONE CR 30 GM TUBE RC PRN (12:00)
[2020-09-05] MEDS ORDERED: POLYETHYLENE GLYCOL 3350 17 GM POWD.PACK PO PRN (12:00)
[2020-09-05] MEDS ORDERED: MAGNESIUM HYDROXIDE 30 ML UDC PO PRN (12:00)
[2020-09-05] MEDS ORDERED: LACTULOSE 10 G/15 ML UDC (PYXIS) PO PRN (12:00)
[2020-09-05] MEDS: SEVELAMER CARBONATE 800 MG TABLET PO SCH ×2 (12:27→17:12)
[2020-09-05] MEDS: GABAPENTIN 100 MG CAPSULE PO SCH ×2 (12:27→17:12)
[2020-09-05] MEDS: AMIODARONE HCL 200 MG TABLET PO SCH (12:28)
[2020-09-05 16:00] VITALS: BP 118/72
[2020-09-05] MEDS: FINASTERIDE (5 MG) 5 MG TABLET PO SCH (17:11)
[2020-09-05] MEDS: DOCUSATE SODIUM 100 MG CAPSULE PO SCH (17:12)
--- NOTE | 2020-09-05 17:45 | NUR ---
PER DO MCWILLIAMS, ANTIACOAGULANTS TO BE HELD DUE TO DOWNTRENDING HGB, PLT, BRUISING ON ARMS, AND HEMOPTYSIS. PATIENT ALSO REPORTS SLIGHTLY DIFFICULTY BREATHING, SPO2 UNCHANGED 97%. DO POPPY AWARE, NO FURTHER ORDERS RECEIVED. WILL ENDORSE TO ONCOMING RN.
--- NOTE | 2020-09-05 18:47 | NUR ---
PATIENT REMAINS IN BED, ON 3L NASAL CANNULA O2 SAT 91-100%. PATIENT OCCASIONALLY REPORTS DIFFICULTY BREATHING. PATIENT EXHIBITS SIGNS OF BLEEDING INCLUDING BRUISING, HEMOPTYSIS, AND COUGHING UP BLOOD;ANTICOAGULANTS TO BE HELD. NO BM THIS SHIFT. PATIENT ATE APPROXIMATELY 75% FOOD FOR LUNCH, 25% FOR DINNER. ALL SAFETY MEASURES IN PLACE. LEFT HAND IV INTACT AND FLUSHED WELL, NO SIGNS OF INFECTION OR INFILTRATION. REPORT TO BE GIVEN TO ONCOMING RN FOR MICHELLE
--- NOTE | 2020-09-05 19:20 | NUR ---
PT AOX3, RESPIRATIONS EVEN AND UNLABORED. O2 3L VIA NC IN PLACE. NO S/S SOB, DYSPNEA OR RESPIRATORY DISTRESS. SCANT AMT OF DRIED BLOOD ON NOSE. NO S/S OF ACTIVE BLEEDING. HOB ELEVATED AND ASPIRATION PRECAUTIONS ENFORCED.
[2020-09-05 20:00] VITALS: BP 137/89
--- NOTE | 2020-09-05 21:50 | NUR ---
INFORMED DR. LINDA ABOUT PT NOSE BLEED AND SCANT AMT OF BLEEDING WHILE COUGHING. NEW ORDERS RECEIVED. LABS ORDERED STAT. WILL AWAIT RESULTS. .
[2020-09-05] MEDS: ATORVASTATIN 40 MG TABLET PO SCH (22:07)
[2020-09-05] MEDS: SENNOSIDES 8.6 MG TABLET PO SCH (22:07)
--- NOTE | 2020-09-05 22:51 | NUR ---
PT, INR, APTT, FIBRINOGEN, D- DIMER LABS ARE PENDING AT THIS TIME.
--- NOTE | 2020-09-05 23:15 | NUR ---
PT REMOVED #20 TO LEFT HAND. BLEEDING NOTED TO SITE, PRESSURE APPLIED FOR 6 MIN. COVERED WITH GAUZE AND PAPER TAPE. WILL CONTINUE TO MONITOR SITE.
[2020-09-05 23:24] LABS: D-DIMER 4.89 mg/L(FEU (0.17-0.50)
--- NOTE | 2020-09-05 23:30 | NUR ---
NO S/S OF BLEEDING TO RIGHT HAND ,
[2020-09-06] VITALS (7 sets, daily range): BP systolic 107–137; BP diastolic 55–89
--- NOTE | 2020-09-06 00:29 | NUR ---
AWAITING FIBRINOGEN RESULTS.
[2020-09-06] MEDS: PIPERACILLIN /TAZOBACTAM 2.25 G in IV D5W 50 ML IV SCH ×3 (03:51→20:02)
--- NOTE | 2020-09-06 05:36 | NUR ---
PT AOX2-3, DEMANDING AND SCREAMS COMMANDS. ABLE TO USE CALL LIGHT THAT'S WITHIN REACH. . 2119 S/W DR. LINDA REGARDING PT'S NOSE BLEED AND COUGHING UP SMALL SCANT AMOUNT OF BLOOD.. NO VOMITING NOTED. ORDERED LABS PT-15.7, INR- 1.54, APTT-44.1, FIBRINOGEN -210. STANDING ORDER IF FIBRINOGEN < 180 TRANSFUSE 10 UNITS OF CRYOPRECIPITATE. PT PULLED OUT IV SITE. # 22 INSERTED TO MANUEL USING THE VEIN FINDER. IV PATENT AND FLUSHING WELL. PT TEMP LOW RANGING FROM 94.2-94.6 [address]ER IN PLACE. TEMP IS CURRENTLY 94.5. PT APPEARS TO BE SLEEPING IN BED. BARROS DRAINED 40 ML OF DARK YELLOW URINE. PT IS ON HD ON ,, AND MON. SAFETY MAINTAINED.
[2020-09-06 07:03] LABS: BASOPHILS % (AUTO) 0.1 % (0.0-2.0); HEMATOCRIT 27 % (39-51); HEMOGLOBIN 9.1 g/dL (13.5-17.5); LYMPHOCYTES # (AUTO) 0.5 /CMM (0.8-4.8); LYMPHOCYTES % (AUTO) 8.3 % (20.0-44.0); MEAN CORPUSCULAR HGB CONC 33 g/dl (31.0-36.0); MEAN CORPUSCULAR VOLUME 101 fL (80-96); MONOCYTES # (AUTO) 0.2 /CMM (0.1-1.30); MONOCYTES % (AUTO) 3.3 % (2.0-12.0); NEUTROPHILS # (AUTO) 5.4 /CMM (1.8-8.9); NEUTROPHILS % (AUTO) 88.3 % (43.0-81.0); PLATELET COUNT (AUTO) 68 /CMM (150-450); RED BLOOD CELL COUNT(AUTO) 2.72 MIL/uL (4.5-6.0); WHITE BLOOD COUNT (AUTO) 6.1 K/uL (4.3-11.0)
[2020-09-06 07:37] LABS: CALCIUM, SERUM 8.1 mg/dL (8.5-10.1); CARBON DIOXIDE 26 mmol/L (21-32); CHLORIDE 101 mmol/L (98-107); CREATININE 4.2 mg/dL (0.6-1.3); GLUCOSE 107 mg/dL (74-106); MAGNESIUM 2.2 mg/dL (1.8-2.4); PHOSPHORUS 4.9 mg/dL (2.5-4.9); POTASSIUM 4.9 mmol/L (3.5-5.1); SODIUM SERUM 136 mmol/L (136-145); UREA NITROGEN, BLOOD 37 mg/dL (7-18); VANCOMYCIN,RANDOM 13 ug/ml (18-26)
[2020-09-06] MEDS: CALCIUM ACETATE 667 MG TABLET PO SCH (08:26)
[2020-09-06] MEDS: DOCUSATE SODIUM 100 MG CAPSULE PO SCH ×2 (08:26→16:30)
[2020-09-06] MEDS: MULTIVIT W/MINERALS 1 TAB TABLET PO SCH (08:26)
[2020-09-06] MEDS: FOLIC ACID 1 MG TABLET PO SCH (08:26)
[2020-09-06] MEDS: VIT B CMPLX 3/FA/VIT C/BIOTIN 1 TAB TABLET PO SCH (08:26)
[2020-09-06] MEDS: SEVELAMER CARBONATE 800 MG TABLET PO SCH ×3 (08:26→16:30)
[2020-09-06] MEDS: GABAPENTIN 100 MG CAPSULE PO SCH ×3 (08:26→16:30)
[2020-09-06] MEDS: LEVOTHYROXINE SODIUM 112 MCG TABLET PO SCH (08:27)
[2020-09-06] MEDS: PANTOPRAZOLE 40 MG TABLET.DR PO SCH (08:27)
[2020-09-06] MEDS: ASCORBIC ACID 500 MG TABLET PO SCH (08:27)
[2020-09-06] MEDS: DEXAMETHASONE SOD PHOSPHATE 10 MG/ML VIAL IV SCH (08:28)
[2020-09-06] MEDS: DAKINS QUARTER STRENGTH (0.125%) 480 ML BOTTLE TOP SCH (08:28)
[2020-09-06] MEDS: AMIODARONE HCL 200 MG TABLET PO SCH (08:28)
[2020-09-06] MEDS: THERAHONEY GEL 1.5 OZ TUBE TP SCH ×2 (08:29)
[2020-09-06] MEDS: METOCLOPRAMIDE HCL 10 MG TABLET PO SCH (08:35)
[2020-09-06 08:57] LABS: D-DIMER 5.34 mg/L(FEU (0.17-0.50)
[2020-09-06] MEDS ORDERED: Medication Not On Formulary EA (Vitamin B Complex (B Complex) 1 EACH) PO SCH (09:00)
[2020-09-06] MEDS: PROSTAT (PYXIS) 30 ML UDC PO SCH ×2 (09:00→16:48)
--- NOTE | 2020-09-06 15:00 | NUR ---
MD LOMAX ORDERS CONVALESCENT PLASMA, BLOOD TRANSFUSION CONSENT SIGNED IN CHART.
[2020-09-06] MEDS: FINASTERIDE (5 MG) 5 MG TABLET PO SCH (16:30)
--- NOTE | 2020-09-06 16:50 | NUR ---
0900 PROSTAT ADMIN, INITIALLY REFUSED BY PATIENT THIS AM
--- NOTE | 2020-09-06 18:12 | NUR ---
PATIENT REMAINS IN BED, ALERT AND ORIENTED X 2-3. PATIENT IS ON 4 L O2 , INCREASED FROM 3L THIS AM. PATIENT ON MONITOR SHOWING CONTROLLED AFIB 60s-70s. PT WAS ON ELIQUIS, BUT DC DUE TO LOW HGB, PLT, AND BLOOD TINGED SPUTUM/HEMOPTYSIS. MD LINDA ORDERS TO ALSO DC ASA. PATIENT HAS HAD NO BM. PT HAS RCW HD CATH AND MANUEL #[address], NO SIGNS OF INFECTION OR INFILTRATION. ALL WOUND CARE COMPLETED THIS SHIFT. CONVALESCENT PLASMA PENDING, CURRENTLY BEING THAWED IN BLOOD BANK, WILL ENDORSE THAT AND ALL OTHER NEEDS TO ONCOMING RN
--- NOTE | 2020-09-06 20:00 | NUR ---
TECHNOLOGY TRAINER NOTE PT IN BED AWAKE A/O X 2, NO SOB NO DISTRESS OR DISCOMFORT NOTED. DENIES PAIN. ON TELE A FIB HR 70'S. RCW HD CATH INTACT ALEXANDER #22 G INTACT AND PATENT. REPOSITION HIM FOR SKIN MANAGEMENT. SIDE RAILS UP X 3 AND CALL LIGHT WITHIN REACH. VSS. CONTINUE TO MONITOR.
[2020-09-06] MEDS: ATORVASTATIN 40 MG TABLET PO SCH (21:36)
[2020-09-06] MEDS: SENNOSIDES 8.6 MG TABLET PO SCH (21:36)
--- NOTE | 2020-09-06 22:00 | NUR ---
FLIGHT ATTENDANT INFLIGHT SERVICES NOTE PT IS GETTING HD AT THIS TIME. VSS. CONTINUE TO MONITOR. WILL GIVEN CONVALESCENT PLASMA AFTER WARDS.
--- NOTE | 2020-09-06 23:50 | NUR ---
ICT SUPPORT ENGINEER NOTE HD FINISHED PER HD NURSE 1L OUTPUT AT THIS TIME.
[2020-09-07] VITALS (8 sets, daily range): BP systolic 90–133; BP diastolic 55–73
--- NOTE | 2020-09-07 00:55 | NUR ---
SUBSYSTEMS ENGINEER NOTE PT STARTED ON CONVALESCENT PLASMA. NO DISTRESS OR DISCOMFORT NOTED. VSS. ENDORSE TO NURSE MICA FOR CONTINUE TO CARE.
--- NOTE | 2020-09-07 03:57 | NUR ---
HD DONE BEFORE MIDNIGHT, VANCOMYCIN NOT GIVEN, MEDICATION NOT AVAILABLE, TROUGH 09/07/20 0600
[2020-09-07] MEDS: PIPERACILLIN /TAZOBACTAM 2.25 G in IV D5W 50 ML IV SCH ×3 (04:03→20:15)
--- NOTE | 2020-09-07 04:22 | NUR ---
RN NOTES, INFORMED DAVID QUESADA THAT PATIENT HAD 3 EPISODES OF V-TACH, AND THAT PATIENT HAD HD LAST NIGHT, AND SHE ASK FOR BP BP AT THIS TIME 90/55, SHE REPLIED WITH ORDERS TO MONITOR CLOSELY AND LET HER KNOW IF SBP DROPS BELOW 80, NOTED AND CARRIED OUT.
[2020-09-07 04:24] LABS: BASOPHILS # (AUTO) 0.1 /CMM (0.0-0.2); BASOPHILS % (AUTO) 1.2 % (0.0-2.0); EOSINOPHILS % (AUTO) 0.5 % (0.0-6.0); HEMATOCRIT 24 % (39-51); LYMPHOCYTES # (AUTO) 0.6 /CMM (0.8-4.8); LYMPHOCYTES % (AUTO) 6.4 % (20.0-44.0); MEAN CORPUSCULAR HGB CONC 33 g/dl (31.0-36.0); MEAN CORPUSCULAR VOLUME 101 fL (80-96); MONOCYTES # (AUTO) 0.7 /CMM (0.1-1.30); MONOCYTES % (AUTO) 7.2 % (2.0-12.0); NEUTROPHILS # (AUTO) 7.8 /CMM (1.8-8.9); NEUTROPHILS % (AUTO) 84.7 % (43.0-81.0); PLATELET COUNT (AUTO) 62 /CMM (150-450); WHITE BLOOD COUNT (AUTO) 9.2 K/uL (4.3-11.0)
[2020-09-07 04:29] LABS: CALCIUM, SERUM 7.7 mg/dL (8.5-10.1); CARBON DIOXIDE 30 mmol/L (21-32); CHLORIDE 99 mmol/L (98-107); CREATININE 3.4 mg/dL (0.6-1.3); GLUCOSE 109 mg/dL (74-106); MAGNESIUM 2.1 mg/dL (1.8-2.4); PHOSPHORUS 4.1 mg/dL (2.5-4.9); POTASSIUM 4.4 mmol/L (3.5-5.1); SODIUM SERUM 135 mmol/L (136-145); UREA NITROGEN, BLOOD 29 mg/dL (7-18); VANCOMYCIN,RANDOM 11 ug/ml (18-26)
[2020-09-07] MEDS ORDERED: VANCOMYCIN 1 GM VIAL ONE (05:10)
--- NOTE | 2020-09-07 06:21 | NUR ---
RN NOTES ALERT AND ORIENTED X3, STABLE ON 4LPM VIA NC, AFEBRILE, NOT COOPERATIVE AT TIMES, REFUSING TURNING AND REPOSITIONING AND REFUSED WOUND ASSESSMENT OF BUTTOCKS. RIGHT LOWER LEG HAS WOUND, PATIENT REFUSED ASSESSMENT AND PHOTO, DRESSING DRY AND INTACT. PER PATIENT "DO NOT REMOVE DRESSING". WOUNDS THAT ARE EASILY ACCESSIBLE WITHOUT TURNING PATIENT ARE TAKEN. VANCOMYCIN 500 MG IVPB GIVEN, LAST HD 09/06/20 BEFORE MIDNIGHT. SERIAL DEBRIDEMENT OF WOUNDS ON HOLD DUE TO COVID, PLASMA 10 UNITS GIVEN, MONITOR BP.
--- NOTE | 2020-09-07 07:25 | NUR ---
RN OPENING NOTE PATIENT RECEIVED IN BED RESTING IN SEMI-FOWLERS POSITION. PATIENT IS ON O2 THERAPY VIA NC AT 4 LPM AND TOLERATING WELL. NO RESPIRATORY DISTRESS NOTED AT THIS TIME. PATIENT DENIES PAIN. ISOLATION PRECAUTIONS MAINTAINED. SAFETY PRECAUTIONS IMPLEMENTED, BED LOCKED IN LOWEST POSITION, SIDE RAILS UP X2, CALL LIGHT WITHIN REACH. WILL CONTINUE TO MONITOR CLIENT AND PROVIDE CARE THROUGHOUT SHIFT.
[2020-09-07] MEDS: PANTOPRAZOLE 40 MG TABLET.DR PO SCH (08:34)
[2020-09-07] MEDS: LEVOTHYROXINE SODIUM 112 MCG TABLET PO SCH (08:35)
[2020-09-07] MEDS: DEXAMETHASONE SOD PHOSPHATE 10 MG/ML VIAL IV SCH (08:35)
[2020-09-07] MEDS: ASPIRIN 81 MG TAB.CHEW PO SCH (08:37)
[2020-09-07] MEDS: DOCUSATE SODIUM 100 MG CAPSULE PO SCH ×2 (08:37→17:14)
[2020-09-07] MEDS: AMIODARONE HCL 200 MG TABLET PO SCH (08:38)
[2020-09-07] MEDS: FOLIC ACID 1 MG TABLET PO SCH (08:38)
[2020-09-07] MEDS: GABAPENTIN 100 MG CAPSULE PO SCH ×3 (08:39→17:14)
[2020-09-07] MEDS: CALCIUM ACETATE 667 MG TABLET PO SCH (08:39)
[2020-09-07] MEDS: VIT B CMPLX 3/FA/VIT C/BIOTIN 1 TAB TABLET PO SCH (08:39)
[2020-09-07] MEDS: SEVELAMER CARBONATE 800 MG TABLET PO SCH ×3 (08:40→17:14)
[2020-09-07] MEDS: DAKINS QUARTER STRENGTH (0.125%) 480 ML BOTTLE TOP SCH (08:40)
[2020-09-07] MEDS: METOCLOPRAMIDE HCL 10 MG TABLET PO SCH (08:40)
[2020-09-07] MEDS: MULTIVIT W/MINERALS 1 TAB TABLET PO SCH (08:40)
[2020-09-07] MEDS: ASCORBIC ACID 500 MG TABLET PO SCH (08:40)
[2020-09-07] MEDS: THERAHONEY GEL 1.5 OZ TUBE TP SCH ×2 (08:41)
[2020-09-07] MEDS: PROSTAT (PYXIS) 30 ML UDC PO SCH (09:00)
[2020-09-07 10:28] LABS: ABG BASE EXCESS 1.2 mmol/L; ABG OXYGEN SATURATION 95.8 % (92.0-98.5); ABG PCO2 43.3 mmHg (35.0-45.0); ABG PH 7.399 (7.350-7.450); AaDO2 112.5 mmHg; COHb 1.3 % (0.5-1.5); MetHb 0.5 % (0.0-1.5); O2Hb 94.1 % (94.0-97.0)
[2020-09-07] MEDS: FINASTERIDE (5 MG) 5 MG TABLET PO SCH (17:14)
[2020-09-07] MEDS: IPRATROPIUM/ALBUTEROL INHALER IH SCH ×2 (18:58→23:53)
--- NOTE | 2020-09-07 19:46 | NUR ---
RN CLOSING NOTE PATIENT IN BED RESTING IN SEMI-FOWLERS POSITION. PATIENT IS ON O2 THERAPY VIA NC AT 4 LPM AND TOLERATING WELL. NO RESPIRATORY DISTRESS NOTED AT THIS TIME. PATIENT DENIES PAIN. ISOLATION PRECAUTIONS MAINTAINED. WOUND CARE PROVIDED FOR CLIENT. SAFETY PRECAUTIONS IMPLEMENTED, BED LOCKED IN LOWEST POSITION, SIDE RAILS UP X2, CALL LIGHT WITHIN REACH. WILL ENDORSE CARE TO UPCOMING SHIFT.
--- NOTE | 2020-09-07 19:54 | NUR ---
RN NOTE PATIENT IN BED AWAKE, A/OX2. ON O2 4L VIA NC, O2 SAT WNL. TELE MONITOR ON, SR 70'S. NO S/S OF ANY DISCOMFORT AT THIS TIME. WITH BARROS CATH PATENT AND INTACT DRAINING VENKAT URINE TO GRAVITY. WITH RIGHT UPPER CHEST HD CATH, NO S/S OF INFECTION. IV ACCESS LEFT FOREARM #22 INTACT AND FLUSHED WITH NS. BED LOCKED AND IN LOWEST POSITION. CALL LIGHT WITHIN REACH. SAFETY MEASURES IN PLACE. WILL CONTINUE TO MONITOR.
[2020-09-07] MEDS: ATORVASTATIN 40 MG TABLET PO SCH (21:46)
[2020-09-07] MEDS: SENNOSIDES 8.6 MG TABLET PO SCH (21:46)
[2020-09-07] MEDS: HYDROCODONE/APAP 5/325MG TABLET PO PRN (21:54)
[2020-09-08] VITALS (15 sets, daily range): BP systolic 101–138; BP diastolic 62–84
[2020-09-08] MEDS: PIPERACILLIN /TAZOBACTAM 2.25 G in IV D5W 50 ML IV SCH ×3 (04:02→19:52)
[2020-09-08] MEDS: IPRATROPIUM/ALBUTEROL INHALER IH SCH ×3 (06:33→18:05)
--- NOTE | 2020-09-08 07:01 | NUR ---
RN NOTE PATIENT IN BED AWAKE, A/OX2. ON O2 4L VIA NC, O2 SAT WNL. TELE MONITOR ON, SR 70'S. DENIES ANY PAIN. WITH BARROS CATH PATENT AND INTACT DRAINING VENKAT URINE TO GRAVITY 100 OUTPUT. WITH RIGHT UPPER CHEST HD CATH, NO S/S OF INFECTION. IV ACCESS LEFT FOREARM #22 INTACT AND FLUSHED WITH NS. BED LOCKED AND IN LOWEST POSITION. CALL LIGHT WITHIN REACH. SAFETY MEASURES IN PLACE. WILL ENDORSE TO ONCOMING SHIFT.
--- NOTE | 2020-09-08 07:30 | NUR ---
RN opening NOTES Patient in bed in stable condition. No c/o pain or discomfort. On o2 at 4 lpm via n/c with o2 of 98%. Patient noted with f/c intact and hanging to gravity with clear yellow urine. Call light with in reach. Bed is in lowest and locked position.Will monitor throughout shift.
[2020-09-08] MEDS: DOCUSATE SODIUM 100 MG CAPSULE PO SCH ×2 (08:41→16:58)
[2020-09-08] MEDS: MULTIVIT W/MINERALS 1 TAB TABLET PO SCH (08:41)
[2020-09-08] MEDS: VIT B CMPLX 3/FA/VIT C/BIOTIN 1 TAB TABLET PO SCH (08:42)
[2020-09-08] MEDS: CALCIUM ACETATE 667 MG TABLET PO SCH (08:42)
[2020-09-08] MEDS: PANTOPRAZOLE 40 MG TABLET.DR PO SCH (08:42)
[2020-09-08] MEDS: METOCLOPRAMIDE HCL 10 MG TABLET PO SCH (08:42)
[2020-09-08] MEDS: FOLIC ACID 1 MG TABLET PO SCH (08:42)
[2020-09-08] MEDS: HYDROCODONE/APAP 5/325MG TABLET PO PRN ×2 (08:42→21:12)
[2020-09-08] MEDS: ASCORBIC ACID 500 MG TABLET PO SCH (08:42)
[2020-09-08] MEDS: AMIODARONE HCL 200 MG TABLET PO SCH (08:43)
[2020-09-08] MEDS: DEXAMETHASONE SOD PHOSPHATE 10 MG/ML VIAL IV SCH (08:44)
[2020-09-08] MEDS: GABAPENTIN 100 MG CAPSULE PO SCH ×3 (08:44→16:58)
[2020-09-08] MEDS: LEVOTHYROXINE SODIUM 125 MCG TABLET PO SCH (08:44)
[2020-09-08] MEDS: ASPIRIN 81 MG TAB.CHEW PO SCH (09:00)
[2020-09-08] MEDS: THERAHONEY GEL 1.5 OZ TUBE TP SCH ×2 (09:04→09:05)
[2020-09-08] MEDS: DAKINS QUARTER STRENGTH (0.125%) 480 ML BOTTLE TOP SCH (09:05)
[2020-09-08] MEDS: PROSTAT (PYXIS) 30 ML UDC PO SCH (09:07)
[2020-09-08 09:19] LABS: BASOPHILS % (AUTO) 0.3 % (0.0-2.0); HEMATOCRIT 24 % (39-51); HEMOGLOBIN 7.8 g/dL (13.5-17.5); LYMPHOCYTES # (AUTO) 0.7 /CMM (0.8-4.8); LYMPHOCYTES % (AUTO) 8.9 % (20.0-44.0); MEAN CORPUSCULAR HGB CONC 32 g/dl (31.0-36.0); MEAN CORPUSCULAR VOLUME 102 fL (80-96); MONOCYTES # (AUTO) 0.4 /CMM (0.1-1.30); MONOCYTES % (AUTO) 4.5 % (2.0-12.0); NEUTROPHILS # (AUTO) 7.1 /CMM (1.8-8.9); NEUTROPHILS % (AUTO) 86.3 % (43.0-81.0); PLATELET COUNT (AUTO) 54 /CMM (150-450); RED BLOOD CELL COUNT(AUTO) 2.38 MIL/uL (4.5-6.0); WHITE BLOOD COUNT (AUTO) 8.3 K/uL (4.3-11.0)
[2020-09-08 09:32] LABS: CALCIUM, SERUM 7.1 mg/dL (8.5-10.1); CARBON DIOXIDE 30 mmol/L (21-32); CHLORIDE 100 mmol/L (98-107); CREATININE 2.7 mg/dL (0.6-1.3); GLUCOSE 122 mg/dL (74-106); MAGNESIUM 1.9 mg/dL (1.8-2.4); PHOSPHORUS 3.2 mg/dL (2.5-4.9); POTASSIUM 4.5 mmol/L (3.5-5.1); SODIUM SERUM 134 mmol/L (136-145); UREA NITROGEN, BLOOD 26 mg/dL (7-18)
--- NOTE | 2020-09-08 09:45 | NUR ---
HELD ASPIRIN DUE TO LOW PLATELETS AND PRESIDENT AND CHIEF COMMERCIAL OFFICER BHANU AGREED.
[2020-09-08] MEDS: diphenhydrAMINE HCL 50 MG/ML VIAL IV ONE ×2 (10:30→16:57)
[2020-09-08] MEDS: ACETAMINOPHEN 325 MG TABLET PO ONE ×2 (10:30→16:57)
[2020-09-08] MEDS: SEVELAMER CARBONATE 800 MG TABLET PO SCH ×3 (11:37→16:58)
[2020-09-08] MEDS: NEPRO VAN 237 ML CAN PO SCH ×2 (13:24→17:45)
[2020-09-08] MEDS: FINASTERIDE (5 MG) 5 MG TABLET PO SCH (16:58)
[2020-09-08] MEDS ORDERED: diphenhydrAMINE HCL 50 MG/ML VIAL IV ONE (17:00)
[2020-09-08] MEDS: APIXABAN 2.5 MG TABLET PO SCH (17:44)
--- NOTE | 2020-09-08 19:10 | NUR ---
RN OPENING NOTE RECEIVED PATIENT IN BED RESTING ALERT ORIENTED X2 VERBALLY RESPONSIVE ON 6L OXYGEN VIA NASAL CANNULA, O2:96% IV SITE IS RIGHT UPPER ARM MID LINE INTACT PATENT,BARROS CATHETER IN PLACE,URINE DRAINING BY GRAVITY,KEEP CALL LIGHT WITHIN REACH,KEEP BED IN LOW POSITION,SAFETY MEASURE IMPLEMENT CONTINUE TO MONITOR.
--- NOTE | 2020-09-08 20:01 | NUR ---
RN CLOSING NOTES Patient in bed in stable condition. No c/o pain or discomfort. On o2 at 4 lpm via n/c with o2 of 93%. Patient noted with f/c intact and hanging to gravity with clear yellow urine. Patient given 1 units\ of cryoprecipitate during shift and hung 2 nd bag at 1910. Endorsed to next shift to check vitals 15 minutes after hanging second bag.Hemodialysis done with 0 output and guido noted with 200 cc urine output.Mid line inserted to right AC and no s/s of skin bleeding. Call light with in reach. Bed is in lowest and locked position.Endorsed to next shift for follow up regarding cryo.
[2020-09-08] MEDS: SENNOSIDES 8.6 MG TABLET PO SCH (21:12)
[2020-09-08] MEDS: ATORVASTATIN 40 MG TABLET PO SCH (21:12)
[2020-09-09] VITALS: BP 135/75
[2020-09-09] MEDS: IPRATROPIUM/ALBUTEROL INHALER IH SCH ×4 (00:19→18:14)
[2020-09-09] MEDS: PIPERACILLIN /TAZOBACTAM 2.25 G in IV D5W 50 ML IV SCH ×2 (03:08→12:32)
[2020-09-09 04:00] VITALS: BP 144/77
[2020-09-09 06:49] LABS: CALCIUM, SERUM 8.2 mg/dL (8.5-10.1); CARBON DIOXIDE 27 mmol/L (21-32); CHLORIDE 98 mmol/L (98-107); CREATININE 3.8 mg/dL (0.6-1.3); GLUCOSE 109 mg/dL (74-106); POTASSIUM 4.6 mmol/L (3.5-5.1); SODIUM SERUM 133 mmol/L (136-145); UREA NITROGEN, BLOOD 40 mg/dL (7-18)
--- NOTE | 2020-09-09 06:59 | NUR ---
RN CLOSING NOTE PATIENT REMAINS ON ALERT ORIENTED X2 VERBALLY RESPONSIVE NO SOB NOT ACUTE DISTRESS NOTED,HE IS ON 6L OXYGEN VIA NASAL CANNULA, O2:96% IV SITE IS ON RIGHT UPPER ARM MIDLINE INTACT PATENT,BARROS CATHETER IN PLACE,ALL DUE MEDS GIVEN MD ORDERED KEPT CLEAN AND DRY ALL THE TIME,KEPT COMFORTABLE,KEPT CALL LIGHT WITHIN REACH,ENDORSE NEXT COMING SHIFT FOR CONTINUATION OF CARE
[2020-09-09 07:43] LABS: BASOPHILS % (AUTO) 0.2 % (0.0-2.0); HEMATOCRIT 26 % (39-51); HEMOGLOBIN 8.4 g/dL (13.5-17.5); LYMPHOCYTES # (AUTO) 0.6 /CMM (0.8-4.8); LYMPHOCYTES % (AUTO) 7.5 % (20.0-44.0); MEAN CORPUSCULAR HGB CONC 33 g/dl (31.0-36.0); MEAN CORPUSCULAR VOLUME 102 fL (80-96); MONOCYTES # (AUTO) 0.5 /CMM (0.1-1.30); MONOCYTES % (AUTO) 6.4 % (2.0-12.0); NEUTROPHILS # (AUTO) 7.2 /CMM (1.8-8.9); NEUTROPHILS % (AUTO) 85.9 % (43.0-81.0); RED BLOOD CELL COUNT(AUTO) 2.53 MIL/uL (4.5-6.0); WHITE BLOOD COUNT (AUTO) 8.4 K/uL (4.3-11.0)
--- NOTE | 2020-09-09 07:45 | NUR ---
RN OPENING NOTE PATIENT IS IN BED WITH HOB AT SEMI FOWLERS POSITION. PATIENT IS CURRENTLY AOX2. CURRENTLY ON 4L VIA NC WITH NO SIGNS OF LABORED BREATHING. BARROS CATHETER IS IN PLACE. PATIENT HAS BILATERAL UPPER CHEST SKIN DAMAGE, RIGHT HAND/ARM SKIN TEARS, RIGHT HEEL ULCER, RIGHT BRITO WOUND, LEFT BRITO WOUND. RIGHT UPPER CHEST PERMA CATH IS NOTED. BED IS LOCKED IN THE LOWEST POSITION, 3 GUARD RAILS RAISED, CALL MCINTOSH WITHIN REACH, AND ALL HOSPITAL SAFETY PRECAUTIONS ARE BEING FOLLOWED. WILL CONTINUE TO MONITOR THROUGHOUT SHIFT.
[2020-09-09 07:47] LABS: PLATELET COUNT (AUTO) 52 /CMM (150-450)
[2020-09-09 08:00] VITALS: BP 119/74
[2020-09-09] MEDS: NEPRO VAN 237 ML CAN PO SCH ×2 (08:00→16:58)
[2020-09-09] MEDS: ASCORBIC ACID 500 MG TABLET PO SCH (09:00)
[2020-09-09] MEDS: DOCUSATE SODIUM 100 MG CAPSULE PO SCH ×2 (09:00→16:40)
[2020-09-09] MEDS: VIT B CMPLX 3/FA/VIT C/BIOTIN 1 TAB TABLET PO SCH (09:00)
[2020-09-09] MEDS: MULTIVIT W/MINERALS 1 TAB TABLET PO SCH (09:00)
[2020-09-09] MEDS: GABAPENTIN 100 MG CAPSULE PO SCH ×3 (09:00→16:39)
[2020-09-09] MEDS: SEVELAMER CARBONATE 800 MG TABLET PO SCH ×3 (09:00→16:39)
[2020-09-09 09:01] LABS: D-DIMER 5.83 mg/L(FEU (0.17-0.50)
[2020-09-09] MEDS: DEXAMETHASONE SOD PHOSPHATE 10 MG/ML VIAL IV SCH (09:01)
[2020-09-09] MEDS: AMIODARONE HCL 200 MG TABLET PO SCH (09:01)
[2020-09-09] MEDS: METOCLOPRAMIDE HCL 10 MG TABLET PO SCH (09:01)
[2020-09-09] MEDS: FOLIC ACID 1 MG TABLET PO SCH (09:01)
[2020-09-09] MEDS: CALCIUM ACETATE 667 MG TABLET PO SCH (09:01)
[2020-09-09] MEDS: PANTOPRAZOLE 40 MG TABLET.DR PO SCH (09:06)
[2020-09-09] MEDS: LEVOTHYROXINE SODIUM 125 MCG TABLET PO SCH (09:08)
[2020-09-09] MEDS ORDERED: PROSOURCE / PROSTAT (PYXIS) 30 ML UDC PO SCH (09:14)
[2020-09-09] MEDS: APIXABAN 2.5 MG TABLET PO SCH ×2 (09:15→16:41)
[2020-09-09] MEDS: THERAHONEY GEL 1.5 OZ TUBE TP SCH ×2 (10:00)
[2020-09-09] MEDS: DAKINS QUARTER STRENGTH (0.125%) 480 ML BOTTLE TOP SCH (10:00)
[2020-09-09 11:10] LABS: LYMPHOCYTES % (MANUAL) 9 % (16-48); MONOCYTES % (MANUAL) 5 % (0-11.0); NEUTROPHILS % (MANUAL) 86 (42-76)
[2020-09-09 12:00] VITALS: BP 128/82
--- NOTE | 2020-09-09 15:22 | NUR ---
PIPER FERN PICKER CALLED NO BED YET AND HOLD DISCHARGE.LISETTE PINEDA MADE AWARE.
--- NOTE | 2020-09-09 15:27 | NUR ---
PER DIRECTOR RECREATION SHE WILL FIND SNF TODAY.
[2020-09-09 16:00] VITALS: BP 145/81
[2020-09-09] MEDS: FINASTERIDE (5 MG) 5 MG TABLET PO SCH (16:40)
--- NOTE | 2020-09-09 19:24 | NUR ---
MEDICAL RECORDS CLERK NOTE REPORT GIVEN TO KEON AT [facility] AT BEDSIDE. RN OPENING NOTE PATIENT IS IN BED WITH HOB AT SEMI FOWLERS POSITION. PATIENT IS CURRENTLY AOX2. CURRENTLY ON 4L VIA NC WITH NO SIGNS OF LABORED BREATHING. BARROS CATHETER IS IN PLACE. PATIENT HAS BILATERAL UPPER CHEST SKIN DAMAGE, RIGHT HAND/ARM SKIN TEARS, RIGHT HEEL ULCER, RIGHT BRITO WOUND, LEFT BRITO WOUND HAVE ALL HAD PICTURES TAKEN AND PLACED IN CHART. RIGHT UPPER CHEST PERMA CATH IS NOTED. BED IS LOCKED IN THE LOWEST POSITION, 3 GUARD RAILS RAISED, CALL MCINTOSH WITHIN REACH, AND ALL HOSPITAL SAFETY PRECAUTIONS ARE BEING FOLLOWED. WILL ENDORSE TO WEB PAGE DESIGNER RN.
--- NOTE | 2020-09-09 20:00 | NUR ---
PT PICKED UP BY EMT, A/O X2 , IN STABLE CONDITION NO RESPIRATORY DISTRESS NOTED.
== END 2020-09-09 21:25 | DRG 871 ==
LOC: ER 13:26 → TELE1 15:59 → MEDSG1 09-08 08:18
PROVIDERS: ADMIT Student in an Organized Health Care Education/Training Program; ATTEND Nurse Practitioner Acute Care
PROC: 5A1D70Z Performance of Urinary Filtration, Intermittent, Less than 6 Hours Per Day (ICD-10-PCS; 2020-09-04)
PROC: XW13325 Transfusion of Convalescent Plasma (Nonautologous) into Peripheral Vein, Percutaneous Approach, New Technology Group 5 (ICD-10-PCS; 2020-09-06)
PROC: 30233M1 Transfusion of Nonautologous Plasma Cryoprecipitate into Peripheral Vein, Percutaneous Approach (ICD-10-PCS; principal; 2020-09-08)
PROC: 05HY33Z Insertion of Infusion Device into Upper Vein, Percutaneous Approach (ICD-10-PCS; 2020-09-08)
DX: A41.89 Other specified sepsis (principal); L89.154 Pressure ulcer of sacral region, stage 4; E43 Unspecified severe protein-calorie malnutrition; N18.6 End stage renal disease; J96.01 Acute respiratory failure with hypoxia; U07.1 COVID-19; J12.82 Pneumonia due to coronavirus disease 2019; I13.2 Hypertensive heart and chronic kidney disease with heart failure and with stage 5 chronic kidney disease, or end stage renal disease; D68.59 Other primary thrombophilia; R18.8 Other ascites; I50.32 Chronic diastolic (congestive) heart failure; J98.11 Atelectasis; I48.20 Chronic atrial fibrillation, unspecified; I82.402 Acute embolism and thrombosis of unspecified deep veins of left lower extremity; D61.818 Other pancytopenia; D68.8 Other specified coagulation defects; Z99.2 Dependence on renal dialysis; I95.9 Hypotension, unspecified; D63.1 Anemia in chronic kidney disease; K21.9 Gastro-esophageal reflux disease without esophagitis; Z74.01 Bed confinement status; Z79.82 Long term (current) use of aspirin; Z79.899 Other long term (current) drug therapy; Z79.01 Long term (current) use of anticoagulants; N40.0 Benign prostatic hyperplasia without lower urinary tract symptoms; Z90.49 Acquired absence of other specified parts of digestive tract; E03.9 Hypothyroidism, unspecified; E78.5 Hyperlipidemia, unspecified; D63.8 Anemia in other chronic diseases classified elsewhere; D69.6 Thrombocytopenia, unspecified; Z74.09 Other reduced mobility; N25.0 Renal osteodystrophy; F03.90 Unspecified dementia, unspecified severity, without behavioral disturbance, psychotic disturbance, mood disturbance, and anxiety; G62.9 Polyneuropathy, unspecified; I73.9 Peripheral vascular disease, unspecified; L97.519 Non-pressure chronic ulcer of other part of right foot with unspecified severity; D53.9 Nutritional anemia, unspecified; D69.2 Other nonthrombocytopenic purpura; D73.1 Hypersplenism; K74.60 Unspecified cirrhosis of liver
CPT/HCPCS: 36415; 36600; 71045-TC; 76700-TC; 80048-TC; 80061-TC; 80076-TC; 80202-TC; 82140-TC; 83605-TC; 83735-TC; 84100-TC; 84439-TC; 84443-TC; 84484-TC; 85025-TC; 85396; 85730-TC; 86706; 86803; 86850-TC; 87040-TC; 87081-TC; 87340; 90935-TC; A4216; A6253; A6403; G0378; J1100; J1200; J2405; J2543; J3370; J7030; J7040; J7050; J7060; J8597; P9012; P9017-BL; P9047; U0003